=== PATIENT | male | born 2000 | race African-American/Black ===

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

== ENCOUNTER 2019-04-30 17:14 | Emergency (ER) | payer OTHER ==
--- OUTSIDE RECORDS SUMMARY | 2019-04-30 17:27 | XMS REPORT | Continuity of Care Document ---
:2000 External Reference #:[id number] Author Name Stacy Layne MD, PHD Address [address] 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 Onset: 05/27/2015 Atopic dermatitis Mary Anderson M.D. Onset: 02/02/2016 Gastroesophageal reflux disease Mary Anderson M.D. Onset: 05/12/2016 Hemorrhage of rectum and anus Skinny Ramos MD Onset: 08/31/2016 Vitamin D deficiency Skinny Ramos MD Onset: 09/14/2016 Closed traumatic dislocation Ivanna Green PA Onset: 03/28/2017 acromioclavicular joint Sprain of shoulder Ivanna Green PA Onset: 01/09/2018 Disorder of shoulder Ivanna Green PA Onset: 02/23/2018 Disorder of bursa of shoulder region Ivanna Green PA Onset: 02/23/2018 Closed fracture of middle phalanx of index Ivanna Green PA Onset: 2017 finger Mild intermittent asthma Stacy Layne MD, PHD Onset: 12/03/2018 Backache Stacy Layne MD, PHD Onset: 12/17/2018 Dysuria Stacy Layne MD, PHD Onset: 12/17/2018 Increased frequency of urination Stacy Layne MD, PHD Onset: 12/17/2018 Low back pain Stacy Layne MD, PHD Onset: 01/07/2019 Thoracic and lumbosacral neuritis Stacy Layne MD, PHD Onset: 01/07/2019 Resolved Problems Generalized abdominal pain Skinny Ramos MD Onset: 08/31/2016 Resolved: 05/31/2017 Diarrhea Skinny Ramos MD Onset: 08/31/2016 Resolved: 05/31/2017 Acute gastritis Skinny Ramos MD Onset: 09/14/2016 Resolved: 05/31/2017 Exacerbation of asthma Erin Velazquez MD Onset: 07/03/2017 Resolved: 10/31/2017 Sprain of shoulder Ivanna Green PA Onset: 04/25/2017 Resolved: 10/31/2017 Sprain of shoulder rotator cuff Sacha Stanley M.D. Onset: 05/12/2017 Resolved: 10/31/2017 Family History Date Family Member(s) Observation Comments General Cancer General Heart Attack General Heart Disease General Hypertension General Stroke Father Kidney Stone Father Hypertension Father Knee Problems Father Shoulder Surgery Father Stroke Father Alive Mother Kidney Cancer Mother Cancer Mother Renal Failure Syndrome on dialysis Mother Gallstones Mother Alive Grandfather Alive Grandmother Alive Paternal Grandfather due to Cancer () - age 58 Paternal Grandmother Alive Maternal Grandfather Colon Cancer Maternal Grandmother Kidney Cancer Social History Type Date Description Comments Sex Unknown Lives With Female Partner And her Dad Lives With Child Home Environment Lives With Girlfriends mother 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 Employed [employer] Tobacco Use Start: Unknown Never Smoked Cigarettes Smoking Status Reviewed: 04/17/19 Never Smoked Cigarettes ETOH Use Denies alcohol use Tobacco Use Start: Unknown Patient has never smoked Recreational Drug Use Denies Drug Use Exercise Type/Frequency Exercises regularly Allergies, Adverse Reactions, Alerts Description No Known Drug Allergies Medications Active Medications SIG Qnty Indications Ordering Date Provider Amoxicillin 1 tab by mouth 14tabs J02.9 Xi, 04/17/2019 500mg Tablets twice a day MD Stacy, PHD Pimecrolimus apply to 30gm L20.82 Xi, 04/17/2019 1% Cream affected area MD Stacy, every day as PHD needed Triamcinolone Acetonide apply to 80gm L20.82 [place], 04/17/2019 affected area MD Stacy, 0.1% Cream twice a day as PHD needed Zantac 75 1 tab by mouth 14tabs J02.9 [place], 04/17/2019 75mg Tablets twice a day as MD Stacy, needed PHD Cyclobenzaprine HCL 1-2 tab by mouth 30tabs M54.9 [place], 12/17/2018 5mg at bedtime as MD Stacy, Tablets needed for PHD muscle spasm Vitamin D3 1 cap by mouth 90caps E55.9 [place], 12/03/2018 5000Unit every day after MD Stacy, Capsules meals PHD Cetirizine HCL Once Daily 30tabs Unknown 10mg Tablets Epinephrine Once Unknown 0.3mg/0.3ML Solution Auto-Inject Fluticasone Propionate Once Daily 16units Unknown Nasal [place] Allergy Relief 24- Hour 50mcg/Act Suspension Ibuprofen 3 Times A Day as 90tabs Unknown 600mg Tablets Needed as needed for Pain History Medications Bactrim DS 1 tab by mouth twice 20tabs R30.0 [place], 12/10/2018 - a day MD Stacy, 12/17/2018 800-160mg Tablets PHD Ventolin HFA 2 puffs inh every 4 1units J45.20 [place], 12/03/2018 - hours wheezing or MD Stacy, 02/20/2019 108(90Base) mcg/Act difficulty breathing PHD Aerosol No Active Unknown 06/14/2018 - Medications 12/03/2018 Azithromycin 4 tabs by mouth all 4tabs Mary Anderson, 05/08/2018 - 250mg at once. M.D. 05/09/2018 Tablets Hydrocodone-Acetami take 1 tablet by 30tabs Jesus, 02/20/2018 - nophen mouth every 4 hours MD Karis 02/23/2018 5-325mg as needed for pain. Tablets Tramadol HCL 1 by mouth every 6 20tabs Jesus, 12/18/2017 - 50mg hour as needed pain MD Karis 02/23/2018 Tablets Ibuprofen 1 by mouth three 90tabs Lizeth, 12/12/2017 - 600mg times a day as Jose Luis Goncalves 06/14/2018 Tablets needed Acetaminophen 1-2 by mouth every 90tabs Lizeth, 12/12/2017 - 500mg 4-6 hour Jose Luis Goncalves 06/14/2018 Tablets Benzonatate 1 tab by mouth three 30caps J06.9 Mary Anderson, 12/01/2017 - 200mg times a day M.D. 12/11/2017 Capsules No Active Unknown 09/13/2017 - Medications 12/01/2017 Amoxicillin/Clavula 1 by mouth twice a 20tabs J45.901 Marcus, 07/11/2017 - sean Potassium day MD Erin Unknown 875-125mg Tablets Prednisone 1 by mouth every day 3tabs J45.901 Marcus, 07/03/2017 - 50mg until gone MD Erin Unknown Tablets Azithromycin 1 by mouth every day 5tabs J45.901 Marcus 07/03/2017 - 500mg MD Erin 07/11/2017 Tablets Oxycodone HCL 1-2 every 4-6 hour 40tabs S43.421S Lizeth, 06/23/2017 - 5mg as needed pain Jose Luis Goncalves Unknown Tablets Oxycodone HCL 1-2 every 4-6 hour 40tabs S43.421S Lizeth, 06/07/2017 - 5mg as needed pain Jose Luis Goncalves 06/23/2017 Tablets Sulfacetamide 1-2 drops left eye 15ml H10.89 Ra, 05/31/2017 - Sodium 3-5 times a day for Radha Unknown 10% Solution 5 days , COREMAKER PIPE Ear Wax Drops 3-4 drops each ear 15ml H61.21 Miranda, 12/01/2016 - 6.5% as needed Janny Leigh Solution PNP-BC, COREMAKER PIPE, Ibclc Naproxen 1 by mouth twice a 60tabs S93.401A Miranda, 11/23/2016 - 500mg day with food as Lu 03/23/2017 Tablets needed PNP-BC, COREMAKER PIPE, Ibclc Amoxicillin/Clavula take 1 tablet by 14tabs J01.10 Mary Anderson, 2016 - sean Potassium mouth every 12 hours M.D. 11/10/2016 for 7 days for sinus 875-125mg Tablets infection Omeprazole 1 tab by mouth every 30caps K29.00 Skinny Ramos MD 09/14/2016 - 20mg day every morning 03/15/[address] Valencia drink half the 4000ml R10.84 Skinny Ramos MD 08/31/2016 - 236gm evening before and Unknown Solution Rec half the morning of the procedure (1 cup every 10') Dulcolax 4 tablets taken a 4tabs R10.Aisha Ramos MD 08/31/2016 - 5mg 8pm the day before Unknown Tablets DR the procedure Citroma 1 bottle by mouth 1bottle R10.84 Skinny Ramos MD 08/31/2016 - once Unknown 1.745GM/30ML Solution Mouth Tonic Mix 1000mL NS, 45mL 1000ml R07.0 Mary Anderson, 05/24/2016 - Magic vicous lidocaine, M.D. 06/01/2016 Mouthwash Liquid 30mL diphenhydramine soln/syrup, 8.5g sodium bicarb powder, swish and swallow 1-2mLQID Simethicone take 1 tab PO after 30caps R14.3 Mary Anderson, 03/23/2016 - 125mg meals and before M.D. 04/22/2016 Capsules bedtime as needed for flatus Guaifenesin 200 mg by mouth 30tabs J06.9 Mary Anderson, 02/02/2016 - 200mg every 6 hours as M.D. 04/22/2016 Tablets needed Triamcinolone apply to irritated 30gm L20.9 Mary Anderson, 02/02/2016 - Acetonide areas three times a M.D. 06/01/2016 0.1% day as needed. Do Cream not use on face or pelvic areas School Note Patient was seen in R10.13 Mary Anderson, 01/12/2016 - doctor's office M.D. 01/13/2016 today. Was absent from school. Miralax 17g by mouth every 510units R10.13 Mary Anderson, 01/06/2016 - 3350NF daily as needed M.D. 01/12/2016 Powder constipation K59.00 School Note Patient has been Mary Anderson, 01/06/2016 - absent from school M.D. 01/07/2016 from 01/03-01/05 due to illness. Omeprazole 1 by mouth every day 90caps R12 Ra, 12/03/2015 - 20mg Radha, 05/10/[address] REINOSO Dextromethorphan-G 10ml by mouth q4-6 400ml J06.9 Mary Anderson, 10/08/2015 - uaifenesin hours as needed cough M.D. 11/16/2015 10-100mg/5ML Solution Epipen 2-Rd in anaphylaxis inject 2units Z00.129 Mary Anderson, 07/10/2015 - intramuscular x 1 prn M.D. Unknown 0.3mg/0.3ML Solution Auto-Inject Work Note Pt was seen today in Mary Anderson, 07/10/2015 - the office with M.DYordan 07/10/2015 father Proair HFA 1-2 puffs every 4 17gm J45.20 Mary Anderson, 05/27/2015 - hours as needed M.D. Unknown 108(90Base) mcg/Act Aerosol J45.990 Flovent Diskus use twice a day 493.10 Zofia, 05/27/2015 - Jose Luis Chaparro 07/10/2015 50mcg/Blist Aerosol Meloxicam 1 by mouth 30tabs 733.6 Zofia, 05/27/2015 - 7.5mg Tablets every day Jose Lusi Chaparro 07/10/2015 No Active Medications Zofia, 05/27/2015 - Jose Luis Chaparro 05/27/2015 Ventolin HFA Inhale 2 Puffs Unknown - 108(90Base) Every 4 Hours 06/14/2018 mcg/Act Aerosol If Needed Fluticasone Propionate Unknown - 06/14/2018 50mcg/Act Suspension Cetirizine HCL Unknown - 10mg 06/14/2018 Tablets Benzonatate Take One Unknown - 200mg Capsule By 01/09/2018 Capsules Mouth 3 Times A Day Naproxen take one tablet Unknown - 500mg Tablets by mouth twice Unknown a day Flonase Sensimist 2 sprays every Unknown - day Unknown Suspension Zyrtec Allergy 1 tab by mouth Unknown - 10mg every night Unknown Tablets Tylenol 1 tab by mouth Unknown - 325mg Capsules three times per Unknown day prn Cyclobenzaprine HCL take 1 tablet 60tabs [place], - 5mg by mouth three Jenniferleigh, Unknown Tablets times a day - COREMAKER PIPE beware sedating effects [place] Complete 1 by mouth Unknown - 60mg every day Unknown Chewtabs Ondansetron HCL 1 tab by mouth 14tabs Unknown - 8mg every 8 hours 03/15/2017 Tablets as needed Dexamethasone 1 tablet a day Unknown - 4mg Tablets PO for 5 days . 06/01/2016 Omeprazole 1 by mouth 30caps Mary Anderson M.D. - 40mg Capsules every day 03/15/2017 Ondansetron HCL Calvin Epperson - 4mg ALFRED Chambers 06/01/2016 Tablets Ondansetron 1 PO bid Marquis Purvis - 4mg Adelita Machado MD 03/23/2016 Dispers Hydrocodone-Acetaminop She Nieto - hen LUCILAC 12/09/2015 5-325mg Tablets Medications Administered in Office Medication SIG Qnty Indications Ordering Provider Date Injection Ketorolac Tromethamine Stacy Layne MD, 01/07/2019 30 MG/mL (Toradol) PHD Injection Methylprednisolone acetate Ivanna Green PA 01/19/2018 (Depomedrol) 80mg injection Injection Immunizations CPT Code Status Date Vaccine Lot # 36862 Given 12/03/2018 Influenza Virus Vaccine, Quadrivalent, 36 Mos+, [id number] 94216 Given 03/20/2018 Meningococcal Conjugate Vaccine Serogroups For Intramuscular Use 91304 Given 06/28/2017 Influenza Virus Vacc[id number] [id number] Given 12/01/2016 Hepatitis A Vaccine Pediatric/Adolescent Dosage 2 [id number] Dose Schedule 09418 Given 07/12/2016 Influenza Virus Vaccine, Quadrivalent, 36 Mos+, [id number] 60067 Given 03/23/2016 Gardasil [id number] 54937 Given 10/08/2015 Meningococcal Conjugate Vaccine Serogroups For [id number] Intramuscular Use 12149 Given 10/08/2015 Gardasil [id number] 67715 Given 10/08/2015 Hepatitis A Vaccine Pediatric/Adolescent Dosage 2 [id number] Dose Schedule 75178 Given 07/17/2015 Gardasil [id number] 10057 Given 07/17/2015 Varicella (Chicken Pox) Vaccine [id number] Q2038 Given 07/17/2015 Influenza Vaccine (Fluzone) Age 3 And Older [id number] 64086 Given 05/22/2013 Pneumococcal Conjugate Vaccine 13 Valent For Intramuscular Use 74302 Given 02/16/2011 Meningococcal Conjugate Vaccine Serogroups For Intramuscular Use 26180 Given 02/16/2011 Tdap injection 86573 Given 07/19/2004 Poliovirus Vaccine Subcutaneous Or Intramuscular 95482 Given 07/19/2004 DTaP Vaccine Younger Than 7 67772 Given 06/16/2004 MMR Vaccine, Live, For Subcutaneous Use 61119 Given 09/15/2003 Pneumococcal Conjugate Vaccine 13 Valent For Intramuscular Use 23306 Given 11/21/2000 Hib PRP-T Conjugate 4 Dose Schedule 77918 Given 11/21/2000 Pneumococcal Conjugate Vaccine 13 Valent For Intramuscular Use 77823 Given 11/21/2000 DTaP Vaccine Younger Than 7 99347 Given 09/04/2000 Varicella (Chicken Pox) Vaccine 62811 Given 09/04/2000 Poliovirus Vaccine Subcutaneous Or Intramuscular 79124 Given 09/04/2000 MMR Vaccine, Live, For Subcutaneous Use 71145 Given 09/04/2000 Pneumococcal Conjugate Vaccine 13 Valent For Intramuscular Use 92698 Given 06/13/2000 Hepatitis B Vaccine Pediatric/Adolescent 80527 Given 02/23/2000 DTaP Vaccine Younger Than 7 14668 Given 02/23/2000 Hib PRP-T Conjugate 4 Dose Schedule 27460 Given 1999 Hib PRP-T Conjugate 4 Dose Schedule 19851 Given 1999 DTaP Vaccine Younger Than 7 47476 Given 1999 Poliovirus Vaccine Subcutaneous Or Intramuscular 22074 Given 1999 Hepatitis B Vaccine Pediatric/Adolescent 60141 Given 1999 Hepatitis B Vaccine Pediatric/Adolescent 66049 Given 1999 Poliovirus Vaccine Subcutaneous Or Intramuscular 33232 Given 1999 DTaP Vaccine Younger Than 7 69587 Given 1999 Hib PRP-T Conjugate 4 Dose Schedule [id number] Given Unknown Meningococcal B,Unspecified Vital Signs Date Vital Result Comment 04/17/2019 3:31pm BP Systolic 145 mmHg BP Diastolic 79 mmHg Body Temperature 97.9 F Heart Rate 84 /min Respiratory Rate 20 /min Height 69 inches 5'9" Weight 179.38 lb BMI (Body Mass Index) 26.5 kg/m2 BSA (Body Surface Area) 1.97 m2 [place] body weight in kilograms 73 kg Height Percentile 42 % Weight Percentile 81st O2 % BldC Oximetry 98 % Ra Pain Level 0 02/22/2019 2:53pm BP Systolic 146 mmHg BP Diastolic 77 mmHg Body Temperature 98.0 F Heart Rate 88 /min Respiratory Rate 18 /min Height 69 inches 5'9" Weight 174.00 lb BMI (Body Mass Index) 25.7 kg/m2 BSA (Body Surface Area) 1.95 m2 [place] body weight in kilograms 73 kg Height Percentile 42 % Weight Percentile 76th O2 % BldC Oximetry 99 % 02/20/2019 3:05pm BP Systolic 136 mmHg BP Diastolic 82 mmHg Body Temperature 98.4 F Heart Rate 79 /min Height 69 inches 5'9" Weight 172.00 lb BMI (Body Mass Index) 25.4 kg/m2 BSA (Body Surface Area) 1.94 m2 [place] body weight in kilograms 73 kg Height Percentile 42 % Weight Percentile 74th O2 % BldC Oximetry 97 % 01/07/2019 2:56pm BP Systolic 145 mmHg BP Diastolic 79 mmHg Body Temperature 98.0 F Heart Rate 74 /min Respiratory Rate 14 /min Height 69 inches 5'9" Weight 170.00 lb BMI (Body Mass Index) 25.1 kg/m2 BSA (Body Surface Area) 1.93 m2 [place] body weight in kilograms 73 kg Height Percentile 42 % Weight Percentile 73rd O2 % BldC Oximetry 98 % 01/01/2019 1:50pm BP Systolic 123 mmHg BP Diastolic 79 mmHg Body Temperature 98.9 F Heart Rate 81 /min Respiratory Rate 16 /min Height 69 inches 5'9" Weight 167.00 lb BMI (Body Mass Index) 24.7 kg/m2 BSA (Body Surface Area) 1.91 m2 [place] body weight in kilograms 73 kg Height Percentile 42 % Weight Percentile 69th O2 % BldC Oximetry 98 % Pain Level 8 Lower Back Pain Travels To [place] [employer] [place] 12/21/2018 2:12pm BP Systolic 128 mmHg BP Diastolic 88 mmHg Body Temperature 98.6 F Heart Rate 84 /min Respiratory Rate 16 /min Height 69 inches 5'9" Weight 169.00 lb BMI (Body Mass Index) 25.0 kg/m2 BSA (Body Surface Area) 1.92 m2 [place] body weight in kilograms 73 kg Height Percentile 42 % Weight Percentile 72nd O2 % BldC Oximetry 98 % 12/17/2018 4:37pm BP Systolic 129 mmHg BP Diastolic 83 mmHg Body Temperature 98.2 F Heart Rate 68 /min Respiratory Rate 16 /min Height 69 inches 5'9" Weight 172.00 lb BMI (Body Mass Index) 25.4 kg/m2 BSA (Body Surface Area) 1.94 m2 [place] body weight in kilograms 73 kg Height Percentile 42 % Weight Percentile 75th O2 % BldC Oximetry 98 % 12/10/2018 3:52pm BP Systolic 143 mmHg BP Diastolic 81 mmHg Body Temperature 98.2 F Heart Rate 76 /min Respiratory Rate 18 /min Height 69 inches 5'9" Weight 170.00 lb BMI (Body Mass Index) 25.1 kg/m2 BSA (Body Surface Area) 1.93 m2 [place] body weight in kilograms 73 kg Height Percentile 42 % Weight Percentile 73rd O2 % BldC Oximetry 98 % 12/03/2018 1:47pm BP Systolic 135 mmHg BP Diastolic 79 mmHg Body Temperature 97.5 F Heart Rate 75 /min Respiratory Rate 16 /min Height 69 inches 5'9" Weight 172.00 lb BMI (Body Mass Index) 25.4 kg/m2 BSA (Body Surface Area) 1.94 m2 [place] body weight in kilograms 73 kg Height Percentile 42 % Weight Percentile 75th O2 % BldC Oximetry 98 % 07/16/2018 12:00am BP Systolic 147 mmHg BP Diastolic 86 mmHg Body Temperature 98.9 F Heart Rate 65 /min Respiratory Rate 14 /min Height 69 inches Weight 170.00 lb BMI (Body Mass Index) 25.1 kg/m2 Height Percentile 43 % Weight Percentile 75th O2 % BldC Oximetry 100 % 06/14/2018 8:29am BP Systolic 112 mmHg BP Diastolic 74 mmHg Body Temperature 98.0 F Heart Rate 70 /min Height 67 inches 5'7" [place] body weight in kilograms 67 kg Height Percentile 19 % O2 % BldC Oximetry 98 % Pain Level 0 05/29/2018 2:19pm BP Systolic 128 mmHg BP Diastolic 86 mmHg Body Temperature 97.7 F Heart Rate 82 /min Respiratory Rate 15 /min Height 67 inches 5'7" Weight 168.00 lb BMI (Body Mass Index) 26.3 kg/m2 BSA (Body Surface Area) 1.88 m2 [place] body weight in kilograms 67 kg Height Percentile 19 % Weight Percentile 73rd O2 % BldC Oximetry 99 % Room air Pain Level 5 05/07/2018 11:14am BP Systolic Sitting Left Arm 140 mmHg BP Diastolic Sitting Left Arm 78 mmHg Body Temperature 98.6 F Heart Rate 77 /min Weight 170.00 lb Weight Percentile 75th O2 % BldC Oximetry 97 % 03/22/2018 9:12am BP Systolic Sitting Left Arm 128 mmHg BP Diastolic Sitting Left Arm 72 mmHg Body Temperature 98.2 F Heart Rate 82 /min Weight 174.38 lb Weight Percentile 80th O2 % BldC Oximetry 96 % 03/22/2018 8:44am BP Systolic 125 mmHg BP Diastolic 77 mmHg Body Temperature 98.7 F Heart Rate 87 /min Respiratory Rate 15 /min Height 68.25 inches 5'8.25" Weight 174.00 lb BMI (Body Mass Index) 26.3 kg/m2 BSA (Body Surface Area) 1.93 m2 [place] body weight in kilograms 71 kg Height Percentile 33 % Weight Percentile 80th O2 % BldC Oximetry 93 % room air Pain Level 0 03/20/2018 9:41am BP Systolic 126 mmHg BP Diastolic 82 mmHg Body Temperature 97.2 F Heart Rate 58 /min Respiratory Rate 18 /min Height 77 inches 6'5" Weight 176.00 lb BMI (Body Mass Index) 20.9 kg/m2 BSA (Body Surface Area) 2.12 m2 [place] body weight in kilograms 94 kg Height Percentile 97 % Weight Percentile 81st O2 % BldC Oximetry 96 % 02/05/2018 9:19am BP Systolic 122 mmHg BP Diastolic 80 mmHg Body Temperature 98.0 F Heart Rate 71 /min Height 77 inches 6'5" Weight 173.00 lb BMI (Body Mass Index) 20.5 kg/m2 BSA (Body Surface Area) 2.10 m2 [place] body weight in kilograms 94 kg Height Percentile 97 % Weight Percentile 79th 01/25/2018 8:53am BP Systolic Sitting Left Arm 124 mmHg BP Diastolic Sitting Left Arm 80 mmHg Body Temperature 98.3 F Heart Rate 72 /min Respiratory Rate 16 /min Height 77 inches 6'5" Weight 170.50 lb BMI (Body Mass Index) 20.2 kg/m2 BSA (Body Surface Area) 2.09 m2 [place] body weight in kilograms 94 kg Height Percentile 97 % Weight Percentile 77th O2 % BldC Oximetry 100 % Ra Pain Level 7 01/09/2018 8:09am BP Systolic 138 mmHg BP Diastolic 93 mmHg Body Temperature 98.3 F Heart Rate 66 /min Respiratory Rate 16 /min Height 77 inches 6'5" Weight 175.00 lb BMI (Body Mass Index) 20.7 kg/m2 BSA (Body Surface Area) 2.11 m2 [place] body weight in kilograms 94 kg Height Percentile 97 % Weight Percentile 81st Pain Level 8 12/18/2017 2:12pm BP Systolic Sitting Left Arm 151 mmHg BP Diastolic Sitting Left Arm 78 mmHg Body Temperature 98.2 F Heart Rate 65 /min Respiratory Rate 19 /min Height 77 inches 6'5" Weight 170.00 lb BMI (Body Mass Index) 20.2 kg/m2 BSA (Body Surface Area) 2.09 m2 [place] body weight in kilograms 94 kg Height Percentile 97 % Weight Percentile 77th 12/12/2017 3:35pm BP Systolic Sitting Left Arm 134 mmHg BP Diastolic Sitting Left Arm 80 mmHg Body Temperature 98.9 F Heart Rate 101 /min Respiratory Rate 20 /min Height 77 inches 6'5" Weight 169.00 lb BMI (Body Mass Index) 20.0 kg/m2 BSA (Body Surface Area) 2.08 m2 [place] body weight in kilograms 94 kg Height Percentile 97 % Weight Percentile 76th 12/04/2017 2:18pm BP Systolic 116 mmHg BP Diastolic 72 mmHg Body Temperature 96.4 F Heart Rate 80 /min Weight 175.00 lb Weight Percentile 82nd O2 % BldC Oximetry 96 % 12/01/2017 10:24am BP Systolic 128 mmHg BP Diastolic 82 mmHg Body Temperature 98.4 F Heart Rate 83 /min Respiratory Rate 18 /min Height 67 inches 5'7" Weight 170.12 lb BMI (Body Mass Index) 26.6 kg/m2 BSA (Body Surface Area) 1.89 m2 [place] body weight in kilograms 67 kg Height Percentile 20 % Weight Percentile 77th O2 % BldC Oximetry 98 % 11/01/2017 11:51am BP Systolic Sitting Left Arm 108 mmHg BP Diastolic Sitting Left Arm 68 mmHg Body Temperature 98.7 F Heart Rate 80 /min Respiratory Rate 20 /min Height 67 inches 5'7" Weight 171.38 lb BMI (Body Mass Index) 26.8 kg/m2 BSA (Body Surface Area) 1.89 m2 [place] body weight in kilograms 67 kg Height Percentile 20 % Weight Percentile 79th 08/14/2017 9:20am BP Systolic 148 mmHg BP Diastolic 92 mmHg Body Temperature 97.6 F Heart Rate 75 /min Height 67 inches 5'7" Weight 168.00 lb BMI (Body Mass Index) 26.3 kg/m2 BSA (Body Surface Area) 1.88 m2 [place] body weight in kilograms Child kg Height Percentile 20 % Weight Percentile 77th O2 % BldC Oximetry 96 % 07/03/2017 9:36am BP Systolic 127 mmHg BP Diastolic 82 mmHg Body Temperature 99.2 F Heart Rate 86 /min Height 67 inches 5'7" Weight 167.00 lb BMI (Body Mass Index) 26.2 kg/m2 BSA (Body Surface Area) 1.87 m2 [place] body weight in kilograms Child kg Height Percentile 21 % Weight Percentile 77th 06/28/2017 11:27am BP Systolic Sitting Left Arm 140 mmHg BP Diastolic Sitting Left Arm 84 mmHg Height 67 inches 5'7" Weight 168.25 lb BMI (Body Mass Index) 26.3 kg/m2 BSA (Body Surface Area) 1.88 m2 [place] body weight in kilograms Child kg Height Percentile 21 % Weight Percentile 78th 06/07/2017 11:08am BP Systolic 129 mmHg BP Diastolic 76 mmHg Body Temperature 97.9 F Heart Rate 78 /min Respiratory Rate 16 /min Height 67 inches 5'7" Weight 168.50 lb BMI (Body Mass Index) 26.4 kg/m2 BSA (Body Surface Area) 1.88 m2 [place] body weight in kilograms Child kg Height Percentile 21 % Weight Percentile 78th Pain Level 0 05/31/2017 10:31am BP Systolic 118 mmHg BP Diastolic 74 mmHg Height 66 inches 5'6" Weight 165.12 lb BMI (Body Mass Index) 26.6 kg/m2 BSA (Body Surface Area) 1.84 m2 [place] body weight in kilograms Child kg Height Percentile 13 % Weight Percentile 75th 04/27/2017 1:40pm BP Systolic Sitting Left Arm 130 mmHg BP Diastolic Sitting Left Arm 72 mmHg Height 66 inches 5'6" Weight 167.00 lb BMI (Body Mass Index) 27.0 kg/m2 BSA (Body Surface Area) 1.85 m2 [place] body weight in kilograms Child kg Height Percentile 13 % Weight Percentile 78th 04/21/2017 9:47am BP Systolic 120 mmHg BP Diastolic 83 mmHg Body Temperature 98.8 F Heart Rate 88 /min Height 67 inches 5'7" Weight 164.00 lb BMI (Body Mass Index) 25.7 kg/m2 BSA (Body Surface Area) 1.86 m2 [place] body weight in kilograms Child kg Height Percentile 22 % Weight Percentile 75th 03/28/2017 1:37pm BP Systolic 125 mmHg BP Diastolic 8 mmHg Heart Rate 72 /min Height 67 inches 5'7" Weight 164.00 lb BMI (Body Mass Index) 25.7 kg/m2 BSA (Body Surface Area) 1.86 m2 [place] body weight in kilograms Child kg Height Percentile 22 % Weight Percentile 75th 03/23/2017 10:05am BP Systolic 130 mmHg BP Diastolic 78 mmHg Body Temperature 96.3 F Heart Rate 84 /min Height 68 inches 5'8" Weight 164.25 lb BMI (Body Mass Index) 25.0 kg/m2 BSA (Body Surface Area) 1.88 m2 [place] body weight in kilograms Child kg Height Percentile 33 % Weight Percentile 75th 03/15/2017 3:38pm BP Systolic Sitting Left Arm 130 mmHg BP Diastolic Sitting Left Arm 84 mmHg Heart Rate 80 /min Respiratory Rate 16 /min Height 68 inches 5'8" Weight 164.00 lb BMI (Body Mass Index) 24.9 kg/m2 BSA (Body Surface Area) 1.88 m2 [place] body weight in kilograms Child kg Height Percentile 33 % Weight Percentile 75th 03/15/2017 11:10am BP Systolic Sitting Left Arm 138 mmHg BP Diastolic Sitting Left Arm 88 mmHg Heart Rate 84 /min Respiratory Rate 20 /min Height 67.5 inches 5'7.50" Weight 165.00 lb BMI (Body Mass Index) 25.5 kg/m2 BSA (Body Surface Area) 1.87 m2 [place] body weight in kilograms Child kg Height Percentile 27 % Weight Percentile 76th 12/08/2016 1:26pm BP Systolic Sitting Left Arm 114 mmHg BP Diastolic Sitting Left Arm 70 mmHg Body Temperature 98.2 F Heart Rate 72 /min Respiratory Rate 24 /min Height 67.5 inches 5'7.50" Weight 167.00 lb BMI (Body Mass Index) 25.8 kg/m2 BSA (Body Surface Area) 1.88 m2 Height Percentile 29 % Weight Percentile 80th 12/01/2016 2:37pm BP Systolic Sitting Right Arm 114 mmHg BP Diastolic Sitting Right Arm 66 mmHg Body Temperature 99.4 F Heart Rate 66 /min Respiratory Rate 16 /min Height 67.5 inches 5'7.50" Weight 163.00 lb BMI (Body Mass Index) 25.1 kg/m2 BSA (Body Surface Area) 1.86 m2 [place] body weight in kilograms Child kg Height Percentile 29 % Weight Percentile 76th 11/23/2016 3:50pm BP Systolic 128 mmHg BP Diastolic 80 mmHg Body Temperature 98.1 F Heart Rate 72 /min Respiratory Rate 18 /min Height 67.75 inches 5'7.75" Weight 164.00 lb BMI (Body Mass Index) 25.1 kg/m2 BSA (Body Surface Area) 1.87 m2 Height Percentile 32 % Weight Percentile 77th O2 % BldC Oximetry 98 % 11/03/2016 4:12pm BP Systolic 132 mmHg BP Diastolic 82 mmHg Body Temperature 99.1 F Heart Rate 78 /min Respiratory Rate 18 /min Height 67.75 inches 5'7.75" Weight 163.00 lb BMI (Body Mass Index) 25.0 kg/m2 BSA (Body Surface Area) 1.87 m2 [place] body weight in kilograms Child kg Height Percentile 32 % Weight Percentile 77th O2 % BldC Oximetry 98 % 09/15/2016 11:36am BP Systolic Sitting Left Arm 128 mmHg BP Diastolic Sitting Left Arm 80 mmHg Height 70 inches 5'10" Weight 168.38 lb BMI (Body Mass Index) 24.2 kg/m2 BSA (Body Surface Area) 1.94 m2 [place] body weight in kilograms Child kg Height Percentile 63 % Weight Percentile 82nd 09/14/2016 2:41pm BP Systolic Sitting Left Arm 120 mmHg BP Diastolic Sitting Left Arm 80 mmHg Heart Rate 80 /min Respiratory Rate 16 /min Height 70 inches 5'10" Weight 167.00 lb BMI (Body Mass Index) 24.0 kg/m2 BSA (Body Surface Area) 1.93 m2 Height Percentile 63 % Weight Percentile 81st 09/06/2016 4:02pm BP Systolic Sitting Right Arm 112 mmHg BP Diastolic Sitting Right Arm 62 mmHg Height 70 inches 5'10" Weight 168.38 lb BMI (Body Mass Index) 24.2 kg/m2 BSA (Body Surface Area) 1.94 m2 [place] body weight in kilograms Child kg Height Percentile 64 % Weight Percentile 82nd 08/31/2016 11:23am BP Systolic Sitting Left Arm 120 mmHg BP Diastolic Sitting Left Arm 88 mmHg Heart Rate 83 /min Respiratory Rate 16 /min Height 69 inches 5'9" Weight 167.00 lb BMI (Body Mass Index) 24.7 kg/m2 BSA (Body Surface Area) 1.91 m2 Height Percentile 50 % Weight Percentile 81st 08/24/2016 10:16am BP Systolic Sitting Left Arm 118 mmHg BP Diastolic Sitting Left Arm 82 mmHg Body Temperature 98.5 F Heart Rate 68 /min Height 69 inches 5'9" Weight 165.00 lb BMI (Body Mass Index) 24.4 kg/m2 BSA (Body Surface Area) 1.90 m2 [place] body weight in kilograms Child kg Height Percentile 50 % Weight Percentile 80th 07/12/2016 2:39pm BP Systolic Sitting Right Arm 122 mmHg BP Diastolic Sitting Right Arm 68 mmHg Body Temperature 98.0 F Heart Rate 60 /min Respiratory Rate 18 /min Height 69 inches 5'9" Weight 162.38 lb BMI (Body Mass Index) 24.0 kg/m2 BSA (Body Surface Area) 1.89 m2 Height Percentile 51 % Weight Percentile 78th 06/01/2016 3:31pm BP Systolic Sitting Left Arm 126 mmHg BP Diastolic Sitting Left Arm 78 mmHg Body Temperature 97.6 F Height 69 inches 5'9" Weight 168.12 lb BMI (Body Mass Index) 24.8 kg/m2 BSA (Body Surface Area) 1.92 m2 [place] body weight in kilograms Child kg Height Percentile 52 % Weight Percentile 84th 05/24/2016 1:03pm BP Systolic Sitting Right Arm 144 mmHg BP Diastolic Sitting Right Arm 82 mmHg Body Temperature 98.2 F Heart Rate 76 /min Respiratory Rate 14 /min Height 69 inches 5'9" Weight 167.00 lb BMI (Body Mass Index) 24.7 kg/m2 BSA (Body Surface Area) 1.91 m2 [place] body weight in kilograms Child kg Height Percentile 52 % Weight Percentile 83rd 05/12/2016 11:05am BP Systolic Sitting Left Arm 138 mmHg BP Diastolic Sitting Left Arm 86 mmHg Heart Rate 82 /min Weight 165.38 lb Weight Percentile 82nd O2 % BldC Oximetry 99 % 05/10/2016 4:31pm BP Systolic Sitting Left Arm 118 mmHg BP Diastolic Sitting Left Arm 78 mmHg Height 68.3 inches 5'8.30" Weight 168.00 lb BMI (Body Mass Index) 25.3 kg/m2 BSA (Body Surface Area) 1.90 m2 [place] body weight in kilograms Child kg Height Percentile 43 % Weight Percentile 84th 04/22/2016 10:06am BP Systolic Sitting Right Arm 116 mmHg BP Diastolic Sitting Right Arm 60 mmHg Height 68.25 inches 5'8.25" Weight 163.00 lb BMI (Body Mass Index) 24.6 kg/m2 BSA (Body Surface Area) 1.88 m2 Height Percentile 42 % Weight Percentile 80th 03/23/2016 9:36am BP Systolic 124 mmHg BP Diastolic 74 mmHg Body Temperature 97.7 F Heart Rate 74 /min Respiratory Rate 16 /min Height 68.25 inches 5'8.25" Weight 165.00 lb BMI (Body Mass Index) 24.9 kg/m2 BSA (Body Surface Area) 1.89 m2 [place] body weight in kilograms Child kg Height Percentile 43 % Weight Percentile 83rd O2 % BldC Oximetry 99 % 02/02/2016 11:38am BP Systolic Sitting Left Arm 119 mmHg BP Diastolic Sitting Left Arm 65 mmHg Body Temperature 97.2 F Heart Rate 78 /min Respiratory Rate 14 /min Weight 162.00 lb Weight Percentile 81st 01/12/2016 2:17pm BP Systolic 128 mmHg BP Diastolic 70 mmHg Heart Rate 76 /min Respiratory Rate 18 /min Weight 159.50 lb Weight Percentile 79th 01/06/2016 8:49am BP Systolic Sitting Left Arm 124 mmHg BP Diastolic Sitting Left Arm 66 mmHg Heart Rate 72 /min Respiratory Rate 19 /min Height 67 inches 5'7" Weight 163.00 lb BMI (Body Mass Index) 25.5 kg/m2 BSA (Body Surface Area) 1.85 m2 Height Percentile 29 % Weight Percentile 83rd 12/09/2015 3:00pm BP Systolic Sitting Left Arm 138 mmHg BP Diastolic Sitting Left Arm 88 mmHg Heart Rate 80 /min Respiratory Rate 21 /min Height 67 inches 5'7" Weight 160.00 lb BMI (Body Mass Index) 25.1 kg/m2 BSA (Body Surface Area) 1.84 m2 Height Percentile 30 % Weight Percentile 81st 12/03/2015 10:25am BP Systolic 108 mmHg BP Diastolic 72 mmHg Body Temperature 98.0 F Height 67.5 inches 5'7.50" Weight 156.00 lb BMI (Body Mass Index) 24.1 kg/m2 BSA (Body Surface Area) 1.83 m2 Height Percentile 36 % Weight Percentile 77th 11/16/2015 10:26am BP Systolic 126 mmHg BP Diastolic 74 mmHg Body Temperature 98.1 F Height 67.5 inches 5'7.50" Weight 154.25 lb BMI (Body Mass Index) 23.8 kg/m2 BSA (Body Surface Area) 1.82 m2 Height Percentile 37 % Weight Percentile 76th 10/08/2015 1:13pm BP Systolic 118 mmHg BP Diastolic 72 mmHg Body Temperature 98.0 F Height 67.5 inches 5'7.50" Weight 150.00 lb BMI (Body Mass Index) 23.1 kg/m2 BSA (Body Surface Area) 1.80 m2 Height Percentile 38 % Weight Percentile 72nd 07/10/2015 10:08am BP Systolic 114 mmHg BP Diastolic 72 mmHg Heart Rate 88 /min Respiratory Rate 18 /min Height 67 inches 5'7" Weight 141.12 lb BMI (Body Mass Index) 22.1 kg/m2 BSA (Body Surface Area) 1.74 m2 Height Percentile 35 % Weight Percentile 63rd 05/27/2015 10:59am BP Systolic Sitting Left Arm 116 mmHg BP Diastolic Sitting Left Arm 72 mmHg Heart Rate 68 /min Respiratory Rate 19 /min Height 67.25 inches 5'7.25" Weight 145.00 lb BMI (Body Mass Index) 22.5 kg/m2 BSA (Body Surface Area) 1.77 m2 Height Percentile 40 % Weight Percentile 70th Results Test Date Facility Test Result H/L Range Note Laboratory test 04/17/2019 [facility] <pending> Pos, Neg, finding A Strep Invalid Ua RFX Micro & 03/05/2019 [facility] Urine Color YELLOW Yellow 1 Culture II [address] [place] [address] [phone] Urine Clarity CLEAR Clear Urine Glucose - Dipstick NEGATIVE mg/dL Negative Urine Bilirubin - Dipstick NEGATIVE Negative Urine Ketone NEGATIVE mg/dL Negative Urine Specific [place] 1.010 Normal 1.010-1.030 Urine Blood NEGATIVE Negative Urine PH 6.0 Low 6.5-7.5 Urine Protein - Dipstick NEGATIVE mg/dL Negative Urine Urobilinogen - Dipstick 0.2 E.U./dL Normal 0.2-1.0 Urine Nitrite - Dipstick NEGATIVE Negative Urine Leuk Esterase NEGATIVE Negative Source: URINE, CLEAN CAT <SEE NOTE> 2 Laboratory test 03/05/2019 [facility] Acetaminophen < 2.0 Low 10.0-30.0 [address] ug/[place] [address] [phone] Ethyl Alcohol 45.0 mg/dL 4 Drugs Of 03/05/2019 [facility] Amphetamines (Urine) Negative Abuse-Urine Screen [address] [place], [place] [id number] [phone] Barbiturates (Urine) Negative Benzodiazepines (Urine) Negative Cannabinoids (Urine) POSITIVE Abnormal Cocaine Metabolite (Urine) Negative Methadone (Urine) Negative Opiates (Urine) Negative Urine Cutoffs * 5 Comprehensive 03/05/2019 [facility] Glucose 101 mg/dL Normal 74-106 Metabolic Panel [address] [place] [address] [phone] BUN 7 mg/dL Normal 7-18 Creatinine 1.0 mg/dL Normal 0.6-1.3 Glom Filtration Rate, Estimate >60 mL/min >60 If >60 mL/min >60 6 BUN/Creat 7.0 ratio Sodium 143 mmol/L Normal 136-145 Potassium 3.4 mmol/L Low 3.5-5.1 Chloride 109 mmol/L High 98-107 Carbon Dioxide 25 mmol/L Normal 21-32 Anion Gap 9 mEq/L Normal 8-16 Calcium 9.1 mg/dL Normal 8.5-10.1 Total Protein 7.8 g/dL Normal 6.4-8.2 Albumin 4.2 g/dL Normal 3.4-5.0 Globulin 3.6 g/dL Normal 1.9-4.3 Alb/Glob 1.2 ratio Bilirubin,Total 0.2 mg/dL Normal 0.2-1.0 Sgot/Ast 10 U/L Low 15-37 7 SGPT/Alt 21 U/L Normal 12-78 Alkaline Phosphatase 80 U/L Normal 45-117 Laboratory test 03/05/2019 [facility] Salicylate < 1.7 Low 2.8-20.0 [address] mg/[place] [address] [phone] CBC W/Automated 03/04/2019 [facility] White Blood 7.2 K/uL Normal 3.4-10.[address] [place] [address] [phone] Red Blood Count 5.80 M/uL Normal 4.20-5.80 Hemoglobin 16.1 gm/dL Normal 12.8-17.0 Hematocrit 47.6 % Normal 38.0-48.0 Mean Cell Volume 82.1 fl Normal 80.0-96.0 Mean Corpuscular HGB 27.8 pg Normal 27.0-33.0 Mean Corpuscular HGB Conc 33.8 g/dL Normal 31.7-36.0 Platelet Count 356 K/uL Normal 155-360 Red Cell Distri Width SD 38.9 fl Normal 36-51 Red Cell Distri Width %CV 13.3 % Normal 11.6-15.8 Mean Platelet Volume 10.0 fl Normal 6.6-10.6 Neut% 72.6 % High 28.0-68.0 Lymph % 18.4 % Low 20.0-42.0 [place] % 6.8 % Normal 0.0-10.0 Eo% 1.1 % Normal 0.0-6.6 Bas% 0.8 % Normal 0.0-1.1 Immature Grans 0.3 % Normal 0.0-5.0 NRBC % 0.0 /100WBC < 10/ 100 WBC Neut# 5.19 K/uL Normal 1.8-7.0 Lymph # 1.32 K/uL Normal 1.0-4.0 [place] # 0.49 K/uL Normal 0.0-0.8 Eos # 0.08 K/uL Normal 0.0-0.5 Baso # 0.06 K/uL Normal 0.0-0.1 Immature Grans Absolute 0.02 K/uL NRBC # 0.00 K/uL Ua RFX Micro & Culture 01/01/2019 [facility] Urine Color YELLOW Yellow 9 II [address] [place] [address] [phone] Urine Clarity CLEAR Clear Urine Glucose - Dipstick NEGATIVE mg/dL Negative Urine Bilirubin - Dipstick NEGATIVE Negative Urine Ketone NEGATIVE mg/dL Negative Urine Specific [place] 1.020 Normal 1.010-1.030 Urine Blood NEGATIVE Negative Urine PH 6.5 Normal 6.5-7.5 Urine Protein - Dipstick NEGATIVE mg/dL Negative Urine Urobilinogen - Dipstick 0.2 E.U./dL Normal 0.2-1.0 Urine Nitrite - Dipstick NEGATIVE Negative Urine Leuk Esterase NEGATIVE Negative Source: URINE, CLEAN CAT <SEE NOTE> 10 Urine Dipstick 12/21/2018 [facility] Ua Color Yellow Yellow Ua Clarity Clear Clear Ua Leuko Negative Negative Ua Nitrite Negative Negative Ua Urobilinogen Negative Low 0.2 - 1.0 E.U./dL Ua Protein Trace Negative Ua PH 6.0 Low 6.5-7.5 Ua Blood Negative Negative Ua Specific [place] 1.025 1.010-1.030 Ua Ketones Negative Negative Ua Bilirubin Negative Negative Ua Glucose Negative Negative Comprehensive 12/18/2018 [facility] Glucose 87 mg/dL Normal 74-106 11 Metabolic Panel [address] [place] [address] [phone] BUN 8 mg/dL Normal 7-18 Creatinine 1.0 mg/dL Normal 0.6-1.3 Glom Filtration Rate, Estimate >60 mL/min >60 If >60 mL/min >60 12 BUN/Creat 8.0 ratio Sodium 141 mmol/L Normal 136-145 Potassium 3.6 mmol/L Normal 3.5-5.1 Chloride 105 mmol/L Normal 98-107 Carbon Dioxide 29 mmol/L Normal 21-32 Anion Gap 7 mEq/L Low 8-16 Calcium 8.9 mg/dL Normal 8.5-10.1 Total Protein 7.3 g/dL Normal 6.4-8.2 Albumin 3.9 g/dL Normal 3.4-5.0 Globulin 3.4 g/dL Normal 1.9-4.3 Alb/Glob 1.1 ratio Bilirubin,Total 0.5 mg/dL Normal 0.2-1.0 Sgot/Ast 15 U/L Normal 15-37 SGPT/Alt 19 U/L Normal 12-78 Alkaline Phosphatase 76 U/L Normal 45-117 CBC W/Automated 12/18/2018 [facility] White Blood 5.8 K/uL Normal 3.4-10.[address] [place] [address] [phone] Red Blood Count 5.54 M/uL Normal 4.20-5.80 Hemoglobin 14.9 gm/dL Normal 12.8-17.0 Hematocrit 45.7 % Normal 38.0-48.0 Mean Cell Volume 82.5 fl Normal 80.0-96.0 Mean Corpuscular HGB 26.9 pg Low 27.0-33.0 Mean Corpuscular HGB Conc 32.6 g/dL Normal 31.7-36.0 Platelet Count 259 K/uL Normal 155-360 Red Cell Distri Width SD 41.9 fl Normal 36-51 Red Cell Distri Width %CV 13.9 % Normal 11.6-15.8 Mean Platelet Volume 9.4 fL Normal 6.6-10.6 Neut% 66.3 % Normal 28.0-68.0 Lymph % 20.7 % Normal 20.0-42.0 [place] % 9.8 % Normal 0.0-10.0 Eo% 2.9 % Normal 0.0-6.6 Bas% 0.3 % Normal 0.0-1.1 Neut# 3.85 K/uL Normal 1.8-7.0 Lymph # 1.20 K/uL Normal 1.0-4.0 [place] # 0.57 K/uL Normal 0.0-0.8 Eos # 0.17 K/uL Normal 0.0-0.5 Baso # 0.02 K/uL Normal 0.0-0.1 Urine Culture 12/10/2018 [facility] Urine Culture NO GROWTH: 13, [address] FINAL <[place] [address] NOTE> [phone] Ua RFX Micro 12/10/2018 [facility] Urine Color YELLOW Yellow & Culture II [address] [place], [place] [id number] [phone] Urine Clarity CLEAR Clear Urine Glucose - Dipstick NEGATIVE mg/dL Negative Urine Bilirubin - Dipstick NEGATIVE Negative Urine Ketone NEGATIVE mg/dL Negative Urine Specific [place] 1.020 Normal 1.010-1.030 Urine Blood NEGATIVE Negative Urine PH 6.0 Low 6.5-7.5 Urine Protein - Dipstick NEGATIVE mg/dL Negative Urine Urobilinogen - Dipstick 0.2 E.U./dL Normal 0.2-1.0 Urine Nitrite - Dipstick NEGATIVE Negative Urine Leuk Esterase NEGATIVE Negative Protein/Creatinine 12/10/2018 [facility] Creatinine,Urine 99.2 Not Ratio,Urine [address] mg/[place] [address] [phone] Protein,Total,Urine 5.0 mg/dL Not Estab. Protein/Creatinine Ratio 50 MG/GCRE 0-200 15 Chlam/GC/Trichomonas 12/10/2018 [facility] Ur Trichomonas NEGATIVE Negative PCR, Ur [address] vaginalis,PCR [place], [place] [id number] [phone] Ur Chlamydia trachomatis,PCR NEGATIVE Negative Ur Neisseria gonorrhoeae,PCR NEGATIVE Negative 16 Chlam/GC/Trichomonas 12/03/2018 [facility] Ur Trichomonas NEGATIVE Negative 17 PCR, Ur [address] vaginalis,PCR [place], [place] [id number] [phone] Ur Chlamydia trachomatis,PCR NEGATIVE Negative Ur Neisseria gonorrhoeae,PCR NEGATIVE Negative 18 Ua RFX Micro & Culture 12/03/2018 [facility] Urine Color YELLOW Yellow II [address] [place] [address] [phone] Urine Clarity CLEAR Clear Urine Glucose - Dipstick NEGATIVE mg/dL Negative Urine Bilirubin - Dipstick NEGATIVE Negative Urine Ketone NEGATIVE mg/dL Negative Urine Specific [place] 1.010 Normal 1.010-1.030 Urine Blood NEGATIVE Negative Urine PH 6.0 Low 6.5-7.5 Urine Protein - Dipstick NEGATIVE mg/dL Negative Urine Urobilinogen - Dipstick 0.2 E.U./dL Normal 0.2-1.0 Urine Nitrite - Dipstick NEGATIVE Negative Urine Leuk Esterase NEGATIVE Negative Source: URINE, CLEAN CAT <SEE NOTE> 19 HIV 1/2 AB 07/16/2018 [facility] HIV 1 2 Nonreactive Nonreactive 20, Evaluation [phone] Antibody 21 GC/Chlamydi 07/16/2018 [facility] Chlamydia Positive Abnormal Negative 22 a Amplified [phone] trachomatis Rna Rna Neisseria gonorrhoeae (GC) Rna Negative Negative Urine Culture And 07/16/2018 [facility] Urine SEE RESULT 23 Sensitivities [phone] Culture BELOW Poc Urinalysis 07/16/2018 [facility] Poc Negative Negative [phone] Glucose, Urine Poc Bilirubin, Urine Negative Negative Poc Ketone, Urine Negative Negative Poc Specific [place], Urine 1.020 Normal 1.010-1.030 Poc Blood, Urine Negative Negative Poc pH, Urine 6.0 Normal 5-9 Poc Protein, Urine Negative Negative Poc Urobilinogen, Urine 0.2 Negative Poc Nitrite, Urine Negative Negative Poc Leukocytes, Urine 1+ Abnormal Negative Poc Color, Urine Yellow Poc Clarity, Urine Clear 24 Laboratory Studies 07/16/2018 N2N/[facility] Import Bedside Urine 1.020 1.010- 1.030 Specific [place] (Lab Bedside Urine Urobilinogen (Lab) 0.2 Bedside Urine pH (Lab) 6.0 5-9 Urine Dipstick 05/07/2018 [facility] Ua Color yellow Yellow Ua Clarity clear Clear Ua Leuko trace Negative Ua Nitrite negative Negative Ua Urobilinogen 0.2 0.2 - 1.0 E.U./dL Ua Protein negative Negative Ua PH 7.5 6.5-7.5 Ua Blood negative Negative Ua Specific [place] 1.010 1.010-1.030 Ua Ketones negative Negative Ua Bilirubin negative Negative Ua Glucose negative Negative Hepatitis 05/07/[address] [facility] [address] Hepatitis A Negative Negative [address] [place] [address] [phone] HBsAg Screen [Ref Lab] Negative Negative Hepatitis B Core IgM Negative Negative HCV Signal/Cutoff ratio < 0.1 s/corat 0.0-0.9 26 Laboratory test 05/07/[address] [facility] [address] Treponema Negative Negative finding [address] [place] [address] [place] [phone] HIV 1/2 Rapid 05/07/[address] HIV 1/2 [place] Non-Reactive [address] [place] [address] [phone] Urine Culture 05/07/[address] [facility] [address] Urine Culture NO GROWTH: [address] FINAL <[place] [address] NOTE> [phone] Chlam/GC/Tricho 05/07/[address] [facility] [address] Ur Trichomonas Negative Negative monas PCR, Ur [address] vaginalis,[place] [address] [phone] Ur Chlamydia trachomatis,PCR POSITIVE Abnormal Negative Ur Neisseria gonorrhoeae,PCR Negative Negative 29 Chlam/GC/Trichomonas 03/20/[address] [address] Ur Trichomonas Negative Negative 30 PCR, Ur [address] vaginalis,[place] [address] [phone] Ur Chlamydia trachomatis,PCR Negative Negative Ur Neisseria gonorrhoeae,PCR Negative Negative 31 Urine Dipstick 03/20/2018 [facility] Ua Color yellow Yellow Ua Clarity clear Clear Ua Leuko neg Negative Ua Nitrite neg Negative Ua Urobilinogen 0.2 0.2 - 1.0 E.U./dL Ua Protein neg Negative Ua PH 8.0 High 6.5-7.5 Ua Blood neg Negative Ua Specific [place] 1.005 Low 1.010-1.030 Ua Ketones neg Negative Ua Bilirubin neg Negative Ua Glucose neg Negative LDL Cholesterol Profile 03/20/[address] [facility] [address] Cholesterol 128 mg/dL <220 06 [address] [place] [address] [phone] Triglycerides 97 mg/dL <150 33 HDL Cholesterol 32 mg/dL Low >40 34 LDL-Cholesterol 77 mg/dL < 100 35 Comprehensive 08/14/[address] [facility] [address] Glucose 90 mg/dL Normal 54-117 36 Metabolic Panel [address] [place] [address] [phone] BUN 13 mg/dL Normal 7-21 Creatinine 0.9 mg/dL Normal 0.8-1.4 Glom Filtration Rate, Estimate >60 mL/min If >60 mL/min BUN/Creat 14.4 ratio Sodium 139 mmol/L Normal 132-141 Potassium 3.9 mmol/L Normal 3.3-4.7 Chloride 108 mmol/L High 97-107 Carbon Dioxide 27 mmol/L High 16-25 Anion Gap 4 mEq/L Low 8-16 Calcium 9.0 mg/dL Normal 9.0-10.7 Total Protein 7.1 g/dL Normal 6.4-8.6 Albumin 4.1 g/dL Normal 3.8-5.6 Globulin 3.0 g/dL Normal 2.0-3.9 Alb/Glob 1.4 ratio Bilirubin,Total 0.3 mg/dL Sgot/Ast 14 U/L Normal 10-41 SGPT/Alt 27 U/L Normal 24-54 Alkaline Phosphatase 84 U/L Low 98-317 CBS W/Automated 08/14/[address] White Blood 5.1 K/uL Normal 4.5-13.5 Diff [address] [facility] [place] [address] [phone] Red Blood Count 5.39 M/uL High 4.50-5.30 Hemoglobin 14.7 gm/dL Normal 13.0-16.0 Hematocrit 44.3 % Normal 37.0-49.0 Mean Cell Volume 82.2 fl Normal 77.0-95.0 Mean Corpuscular HGB 27.3 pg Normal 25.0-30.0 Mean Corpuscular HGB Conc 33.2 g/dL Normal 31.7-36.0 Platelet Count 284 K/uL Normal 150-400 Red Cell Distri Width SD 41.4 fl Normal 36-51 Red Cell Distri Width %CV 13.9 % Normal 11.6-15.8 Mean Platelet Volume 10.3 fL Normal 6.6-10.6 Neut% 53.2 % Normal 28.0-68.0 Lymph % 28.7 % Normal 20.0-42.0 [place] % 11.4 % High 0.0-10.0 Eo% 6.1 % Normal 0.0-6.6 Bas% 0.6 % Normal 0.0-1.1 Neut# 2.70 K/uL Normal 1.8-7.0 Lymph # 1.46 K/uL Normal 1.0-4.0 [place] # 0.58 K/uL Normal 0.0-0.6 Eos # 0.31 K/uL Normal 0.0-0.5 Baso # 0.03 K/uL Normal 0.0-0.1 Laboratory test 08/14/2017 [facility] [address] Thyroid Stim 2.38 Normal 0.30 -4.20 finding [address] [facility] Hormone uIU/mL [place], [place] [id number] [phone] LDL Cholesterol 08/14/2017 [facility] [address] Cholesterol 122 mg/dL Normal 105-218 Profile [address] [place] [address] [phone] Triglycerides 40 mg/dL Normal 32-134 HDL Cholesterol 39 mg/dL Normal 28-72 LDL-Cholesterol 75 mg/dL Laboratory test 02/24/2017 [facility] Rapid Strep Negative Normal Negative 37 finding [phone] Molecular Comprehensive 12/07/2016 [facility] Glucose 75 mg/dL Normal 54-117 38 Metabolic Panel [address] [place] [address] [phone] BUN 13 mg/dL Normal 7-21 Creatinine 0.8 mg/dL Normal 0.8-1.4 Glom Filtration Rate, Estimate >60 mL/min If >60 mL/min BUN/Creat 16.2 ratio Sodium 145 mmol/L High 132-141 Potassium 3.4 mmol/L Normal 3.3-4.7 Chloride 113 mmol/L High 97-107 Carbon Dioxide 20 mmol/L Normal 16-25 Anion Gap 12 mEq/L Normal 8-16 Calcium 8.5 mg/dL Low 9.0-10.7 Total Protein 6.6 g/dL Normal 6.4-8.6 Albumin 3.7 g/dL Low 3.8-5.6 Globulin 2.9 g/dL Normal 2.0-3.9 Alb/Glob 1.3 ratio Bilirubin,Total 0.5 mg/dL Sgot/Ast 8 U/L Low 10-41 39 SGPT/Alt 14 U/L Low 24-54 40 Alkaline Phosphatase 89 U/L Low 98-317 Blood Culture 12/07/2016 [facility] Blood Culture NO GROWTH: FINAL [address] Aerobic <SEE NOTE> [place] [address] [phone] Blood Culture Anaerobic NO GROWTH: FINAL <SEE NOTE> 42 Ua Routine 12/07/2016 [facility] Urine Color STRAW Yellow [address] [place] [address] [phone] Urine Clarity CLEAR Clear Urine Glucose - Dipstick NEGATIVE mg/dL Negative Urine Bilirubin - Dipstick NEGATIVE Negative Urine Ketone 15 mg/dL High Negative Urine Specific [place] <=1.005 Low 1.010-1.030 Urine Blood SMALL Abnormal Negative Urine PH 6.0 Low 6.5-7.5 Urine Protein - Dipstick NEGATIVE mg/dL Negative Urine Urobilinogen - Dipstick 0.2 E.U./dL Normal 0.2-1.0 Urine Nitrite - Dipstick NEGATIVE Negative Urine Leuk Esterase NEGATIVE Negative Urine RBC 0-2 rbc/hpf 0-2 Urine WBC NONE SEEN wbc/hpf 0-7 Urine Epithelial Cells VERY FEW /lpf None Seen Urine Bacteria VERY FEW None Seen Source: URINE, CLEAN CAT <SEE NOTE> 43 Laboratory test 12/07/2016 [facility] Lactic Acid 0.7 mmol/L Low 1.0-1.[address] [place], [place] [id number] [phone] Blood Culture 12/07/2016 [facility] Blood Culture NO GROWTH: [address] Aerobic FINAL <[place] [address] NOTE> [phone] Blood Culture Anaerobic NO GROWTH: FINAL <SEE NOTE> 45 CBS W/Automated 09/12/2016 [facility] White 5.4 K/uL Normal 4.5-13.5 [address] [place] [address] Count [phone] Red Blood Count 5.73 M/uL High 4.50-5.30 Hemoglobin 15.6 gm/dL Normal 13.0-16.0 Hematocrit 46.0 % Normal 37.0-49.0 Mean Cell Volume 80.3 fl Normal 77.0-95.0 Mean Corpuscular HGB 27.2 pg Normal 25.0-30.0 Mean Corpuscular HGB Conc 33.9 g/dL Normal 31.7-36.0 Platelet Count 261 K/uL Normal 150-400 Red Cell Distri Width SD 39.0 fl Normal 36-51 Red Cell Distri Width %CV 13.4 % Normal 11.6-15.8 Mean Platelet Volume 10.1 fL Normal 6.6-10.6 Neut% 67.4 % Normal 28.0-68.0 Lymph % 20.9 % Normal 17.0-56.0 [place] % 9.8 % Normal 0.0-10.0 Eo% 1.5 % Normal 0.0-5.0 Bas% 0.4 % Normal 0.1-1.0 Neut# 3.64 K/uL Normal 1.8-7.0 Lymph # 1.13 K/uL Low 1.8-7.0 [place] # 0.53 K/uL Normal 0.0-0.6 Eos # 0.08 K/uL Normal 0.0-0.5 Baso # 0.02 K/uL Low 0.1-0.2 Basic Metabolic Panel 09/12/2016 [facility] Glucose 93 mg/dL Normal 54-117 [address] [place], [place] [id number] [phone] BUN 11 mg/dL Normal 7-21 Creatinine 0.9 mg/dL Normal 0.8-1.4 Glom Filtration Rate, Estimate >60 mL/min Normal If >60 mL/min Normal BUN/Creat 12.2 ratio Normal Sodium 142 mmol/L High 132-141 Potassium 3.8 mmol/L Normal 3.3-4.7 Chloride 108 mmol/L High 97-107 Carbon Dioxide 29 mmol/L High 16-25 Anion Gap 5 mEq/L Low 8-16 Calcium 9.1 mg/dL Normal 9.0-10.7 CMP Panel (14 Test) 09/02/2016 [facility] Glucose 72 mg/dL Normal 54-117 47 [address] [place] [address] [phone] BUN 12 mg/dL Normal 7-21 Creatinine 1.0 mg/dL Normal 0.8-1.4 Glom Filtration Rate, Estimate >60 mL/min Normal If >60 mL/min Normal BUN/Creat 12.0 ratio Normal Sodium 143 mmol/L High 132-141 Potassium 3.6 mmol/L Normal 3.3-4.7 Chloride 109 mmol/L High 97-107 Carbon Dioxide 30 mmol/L High 16-25 Anion Gap 4 mEq/L Low 8-16 Calcium 8.5 mg/dL Low 9.0-10.7 Total Protein 6.9 g/dL Normal 6.4-8.6 Albumin 4.0 g/dL Normal 3.8-5.6 Globulin 2.9 g/dL Normal 2.0-3.9 Alb/Glob 1.4 ratio Normal Bilirubin,Total 0.5 mg/dL Normal Sgot/Ast 15 U/L Normal 10-41 SGPT/Alt 15 U/L Low 24-54 48 Alkaline Phosphatase 106 U/L Normal 98-317 Laboratory test finding 09/02/2016 [facility] Amylase 54 U/L Normal <106 [address] [place] [address] [phone] Lipase 109 U/L Low 145-216 Laboratory test 09/02/2016 [facility] Sedimentation Rate 1 mm/hr Normal 0-15 finding [address] [place] [address] [phone] Magnesium 1.8 mg/dL Normal 1.6-2.1 Vitamin D,25-Hydroxy 19.4 ng/mL Low 30.0-100.0 49 Celiac 09/02/2016 [facility] Immunoglobulin A 222 mg/dL Normal 90-386 Disease Comp [address] [place] [address] [phone] Antigliadin Abs, IgG 3 units Normal 0-19 50 Antigliadin Abs, IgA 5 units Normal 0-19 51 Endomysial IgA Antibody Negative Normal Negative t-Transglutaminase IgA <2 U/mL Normal 0-3 52 t-Transglutaminase IgG <2 U/mL Normal 0-5 53 Laboratory test 09/02/2016 [facility] Thyroid 1.75 Normal 0.30-4.[address] Stim uIU/[place] [address] Hormone [phone] Free T4 1.01 ng/dL Normal 0.97-1.25 C-Reactive Protein,Quant < 2.9 mg/L Normal 0.7-7.9 Complement C4, Serum 20 mg/dL Normal 14-44 C1 Esterase Inhibitor 23 mg/dL Normal 21-39 C1 Esterase Inhibitor Function 93 %meanno Normal . 54 Smear For WBC'S 09/01/2016 [facility] Smear For WBC'S NONE SEEN Normal [address] [place] [address] [phone] Specimen Source: STOOL Smear Source: STOOL Normal Ova & Parasite 09/01/2016 [facility] Cryptosporidium NEGATIVE FOR 55 Antigen Screen [address] Specific Ag CRY <[place] [address] NOTE> [phone] Giardia Specific Antigen NEGATIVE FOR SUHA <SEE NOTE> 56 Stool Culture 09/01/2016 [facility] Stool Culture NO ENTERIC PATHO [address] <SEE NOTE> [place] [address] [phone] . ................ <SEE NOTE> Normal 58 Note: INCLUDES TESTING <SEE NOTE> Normal 59 . PLESIOMONAS, CAM <SEE NOTE> Normal 60 . ................ <SEE NOTE> Normal 61 . YERSINIA AND VIB <SEE NOTE> Normal 62 . SHOULD BE REQUES <SEE NOTE> Normal 63 Shiga Toxin 1 Antigen SHIGA TOXIN 1 NO <SEE NOTE> 64 Shiga Toxin 2 Antigen SHIGA TOXIN 2 NO <SEE NOTE> 65 Laboratory test 09/01/2016 [facility] Calprotectin, < 16 ug/g Normal 0-120 66 finding [address] Fecal [place] [address] [phone] Fecal Fat, 09/01/2016 [facility] Fats, Neutral Normal Normal . 67 Qualitative [address] [place] [address] [phone] Fats, Total Normal Normal . 68 Throat Culture 05/24/2016 [facility] Throat Culture NORMAL THROAT 69, 70 Complete [address] [place] <SEE NOTE> [place] [id number] [phone] @[facility] Pat Id: [id number] @[facility] Req #: [id number] Throat Culture 05/12/2016 [facility] Throat See Note [address] Culture [place] [address] Complete [phone] Laboratory test 05/11/2016 [facility] Laboratory Rapid Strep Negative Normal Negative 72 finding [phone] Molecular Laboratory test 05/11/2016 [facility] Laboratory Rapid Strep SEE RESULT 73, finding [phone] A BELOW 74 Comprehensive 04/09/2016 [facility] Glucose 105 mg/dL 54-117 Metabolic Panel [address] [place] [id number] [phone] BUN 10 mg/dL 7-21 Creatinine 0.9 mg/dL [...] U/L 10-41 SGPT/Alt 20 U/L Low 24-54 75 Alkaline Phosphatase 103 U/L 98-317 CBC W/Automated Diff 04/09/2016 [facility] White Blood 9.6 K/uL 4.5-13.[address] [place] [address] [phone] Red Blood Count 5.37 M/uL High 4.50-5.30 [...] % 28.0-68.0 Lymph % 22.9 % 17.0-56.0 [place] % 9.4 % 0.0-10.0 Eo% 1.0 % 0.0-5.0 Bas% 0.2 % 0.1-1.0 Neut# 6.39 K/uL 1.8-7.0 Lymph # 2.20 K/uL 1.8-7.0 [place] # 0.90 K/uL High 0.0-0.6 Eos # 0.10 K/uL 0.0-0.5 Baso # 0.02 K/uL Low 0.1-0.2 Laboratory test 04/09/2016 [facility] D-Dimer, < 0.22 [address] Quantitative ug/[place] [address] [phone] Laboratory test 04/09/2016 N2N/CCD Import Basophils # 0.02 Low 0.1-0 finding (Auto) .2 Basophils (%) (Auto) 0.2 0.1-1.0 Carbon Dioxide [...] Level 141 132-141 Type And Screen 03/23/2016 [facility] Type And Screen Canceled By Lab 77 [address] [place] [address] [phone] Type And Screen See Note 78 Patient Blood Type A POS Antibody Screen Negative Negative Celiac Disease AB 03/23/2016 [facility] Immunoglobulin A 245 mg/dL 90-386 Profile [address] [place] [address] [phone] Antigliadin Abs, IgG 3 units 0-19 79 Antigliadin Abs, IgA 6 units 0-19 80 Endomysial IgA Antibody Negative Negative t-Transglutaminase IgA <2 U/mL 0-3 81 t-Transglutaminase IgG <2 U/mL 0-5 82 Laboratory test finding 03/23/2016 N2N/CCD Import Anti-Gliadin IgA Ab 6 0-19 Deaminated Anti-Gliadin IgG Ab Deaminated 3 0-19 Endomysial IgA Antibody Titer Negative Negative Laboratory test 01/12/2016 [facility] H. Pylori Negative Negative 83 finding [address] [place] [address] Antigen [phone] Laboratory test 01/04/2016 [facility] Laboratory Lipase 19 U/L Normal 11.0-82.0 finding [phone] C Reactive Protein < 1.00 mg/L Normal < 5.00 84 Comp Metabolic 01/04/2016 [facility] Laboratory Sodium 138 mmol/ L Normal 133-145 Panel [phone] Potassium 3.5 mmol/L Normal 3.5-5.0 Chloride 105 mmol/L Normal 101-111 Co2 Carbon Dioxide 27 mmol/L Normal 22-32 Anion Gap 6 mmol/L Normal 2-11 Glucose 109 mg/dL High 70-100 Blood Urea Nitrogen 10 mg/dL Normal 6-24 Creatinine 0.77 mg/dL Normal 0.67-1.17 BUN/Creatinine Ratio 13.0 Normal 8-20 Calcium 9.2 mg/dL Normal 8.6-10.3 Total Protein 6.5 g/dL Normal 6.4-8.9 Albumin 4.4 g/dL Normal 3.2-5.2 Globulin 2.1 g/dL Normal 2-4 Albumin/Globulin Ratio 2.1 Normal 1-3 Total Bilirubin 0.30 mg/dL Normal 0.2-1.0 Alkaline Phosphatase 99 U/L Normal 34-104 Alt 9 U/L Normal 7-52 Ast 14 U/L Normal 13-39 Laboratory test 01/04/2016 [facility] Laboratory Lactic 1.3 mmol /L Normal 0.5-2.0 85 finding [phone] Acid Inr/Protime 01/04/2016 [facility] Laboratory Inr 1.05 Normal 0.89-1.11 [phone] CBC Auto Diff 01/04/2016 [facility] Laboratory White 6.5 Normal 3.5-10.8 [phone] Blood 10^3/uL Count Red Blood Count 5.76 10^6/uL High 4.0-5.4 Hemoglobin 15.5 g/dL Normal 14.0-18.0 Hematocrit 48 % Normal 42-52 Mean Corpuscular Volume 83 fL Normal 80-94 Mean Corpuscular Hemoglobin 27 pg Normal 27-31 Mean Corpuscular HGB Conc 33 g/dL Normal 31-36 Red Cell Distribution Width 13 % Normal 10.5-15 Platelet Count 278 10^3/uL Normal 150-450 Mean Platelet Volume 8 um3 Normal 7.4-10.4 Abs Neutrophils 3.8 10^3/uL Normal 1.5-7.7 Abs Lymphocytes 2.0 10^3/uL Normal 1.0-4.8 Abs Monocytes 0.4 10^3/uL Normal 0-0.8 Abs Eosinophils 0.1 10^3/uL Normal 0-0.6 Abs Basophils 0.1 10^3/uL Normal 0-0.2 Abs Nucleated RBC 0.01 10^3/uL Normal Granulocyte % 59.7 % Normal 38-83 Lymphocyte % 31.5 % Normal 25-47 Monocyte % 5.9 % Normal 1-9 Eosinophil % 2.1 % Normal 0-6 Basophil % 0.8 % Normal 0-2 Nucleated Red Blood Cells % 0.2 Normal Laboratory test 11/16/2015 [facility] Throat Strep See Note [address] [place] [address] [phone] Urinalysis With 09/27/2015 [facility] Urine Color ORANGE Yellow Microscopic [address] [place] [address] [phone] Urine Clarity CLEAR Clear Urine Glucose - Dipstick 100 mg/dL High Negative Urine Bilirubin - Dipstick NEGATIVE Negative Urine Ketone NEGATIVE mg/dL Negative Urine Specific [place] 1.010 1.010-1.030 Urine Blood NEGATIVE Negative Urine PH 6.0 Low 6.5-7.5 Urine Protein - Dipstick TRACE mg/dL Negative Urine Urobilinogen - Dipstick 2.0 E.U./dL High 0.2-1.0 Urine Nitrite - Dipstick POSITIVE High Negative Urine Leuk Esterase NEGATIVE Negative Urine RBC NONE SEEN rbc/hpf 0-2 Urine WBC NONE SEEN wbc/hpf 0-7 Urine Epithelial Cells NONE SEEN NONESEEN/lpf Urine Amorph Sediment SMALL Negative Laboratory test 09/27/2015 [facility] Culture If See Note [address] [place] [address] [phone] Ua RFX Micro + Culture II See Note 88 Urine Culture See Note 89 Chlamydia/GC Diana, 09/27/2015 [facility] Chlamydia Negative Urine [address] Trachomatis,[place] [address] -Diana [phone] Neisseria Gonorrhoeae,Ur -Diana Negative 90 Laboratory test 08/19/2015 N2N/CCD Import Basophils # (Auto) 0.02 Low 0.1 -0.2 finding Basophils (%) (Auto) 0.2 0.1-1.0 Eosinophils # [...] 36-51 Sodium Level 140 132-141 CBC W/Automated 08/19/2015 [facility] White Blood 10.9 K/uL 4.5-13.[address] [place] [address] [phone] Red Blood Count 5.66 M/uL High 4.50-5.30 [...] 28.0-68.0 Lymph % 11.2 % Low 17.0-56.0 [place] % 7.2 % 0.0-10.0 Eo% 1.8 % 0.0-5.0 Bas% 0.2 % 0.1-1.0 Neut# 8.64 K/uL High 1.8-7.0 Lymph # 1.22 K/uL Low 1.8-7.0 [place] # 0.78 K/uL High 0.0-0.6 Eos # 0.20 K/uL 0.0-0.5 Baso # 0.02 K/uL Low 0.1-0.2 Laboratory test 08/19/2015 [facility] Lipase 92 U/L Low 145-216 finding [address] [place] [address] [phone] Urinalysis With 08/19/2015 [facility] Urine Color YELLOW Yellow Microscopic [address] [place] [address] [phone] Urine Clarity CLOUDY Clear Urine Glucose - Dipstick NEGATIVE mg/dL Negative Urine Bilirubin - Dipstick NEGATIVE Negative Urine Ketone NEGATIVE mg/dL Negative Urine Specific [place] 1.015 1.010-1.030 Urine Blood MODERATE High Negative Urine PH 6.0 Low 6.5-7.5 Urine Protein - Dipstick TRACE mg/dL Negative Urine Urobilinogen - Dipstick 0.2 E.U./dL 0.2-1.0 Urine Nitrite - Dipstick NEGATIVE Negative Urine Leuk Esterase MODERATE High Negative Urine RBC 20-30 rbc/hpf High 0-2 Urine WBC > 50 wbc/hpf High 0-7 Urine Epithelial Cells NONE SEEN NONESEEN/lpf Urine Bacteria FEW NONESEEN Laboratory test 08/19/2015 [facility] Ua RFX Micro + See Note [address] [place] [address] [phone] Urine Culture See Note 92 Laboratory test 08/19/2015 N2N/CCD Import Urine Bilirubin Negative Negative finding Urine Glucose (Ua) Negative Negative Urine Ketones Negative Negative Urine Leukocyte Esterase Moderate High Negative Urine Nitrite Negative Negative Urine Protein Trace Negative Urine Urobilinogen 0.2 0.2-1.0 Comprehensive Metabolic 08/19/2015 [facility] Glucose 97 mg/dL 54-[address] [place], [place] [address] [phone] BUN 12 mg/dL 7-21 Creatinine 0.9 mg/dL [...] U/L 10-36 SGPT/Alt 14 U/L Low 24-59 93 Alkaline Phosphatase 125 U/L Low 169-618 Chlamydia/GC Diana, 08/19/2015 [facility] Chlamydia Negative Urine [address] Trachomatis,[place] [address] -Diana [phone] Neisseria Gonorrhoeae,Ur -Diana Negative 94 Drugs Of 07/02/2015 [facility] Amphetamines (Urine) Negative Abuse-Urine Screen [address] [place] [address] [phone] Barbiturates (Urine) Negative Benzodiazepines (Urine) Negative Cannabinoids (Urine) Negative Cocaine Metabolite (Urine) Negative Methadone (Urine) Negative Opiates (Urine) Negative Urine Cutoffs * 95 Laboratory test 07/02/2015 N2N/CCD Import Urine Amphetamines Negative finding Screen Urine Barbiturates Screen Negative Urine Benzodiazepines Screen Negative Urine Cannabinoids Screen Negative Urine Cocaine Screen Negative Urine Drug Screen Information * Urine Methadone Screen Negative Urine Opiates Screen Negative Comprehensive Metabolic 05/19/2015 [facility] Glucose 89 mg/dL 54-[address] [place] [address] [phone] BUN 8 mg/dL 7-21 Creatinine 0.8 mg/dL [...] U/L 10-36 SGPT/Alt 22 U/L Low 24-59 96 Alkaline Phosphatase 119 U/L Low 169-618 CBC W/Automated Diff 05/19/2015 [facility] White Blood 5.7 K/uL 4.5-13.[address] [place] [address] [phone] Red Blood Count 5.65 M/uL High 4.50-5.30 [...] % 28.0-68.0 Lymph % 24.0 % 17.0-56.0 [place] % 13.2 % High 0.0-10.0 Eo% 6.3 % High 0.0-5.0 Bas% 0.7 % 0.1-1.0 Neut# 3.16 K/uL 1.8-7.0 Lymph # 1.36 K/uL Low 1.8-7.0 [place] # 0.75 K/uL High 0.0-0.6 Eos # 0.36 K/uL 0.0-0.5 Baso # 0.04 K/uL Low 0.1-0.2 Laboratory test 05/19/2015 [facility] D-Dimer, < 0.22 [address] Quantitative ug/[place] [address] [phone] Laboratory test 05/19/2015 N2N/CCD Import Basophils # 0.04 Low 0.1-0 finding (Auto) .2 Basophils (%) (Auto) 0.7 0.1-1.0 Eosinophils # [...] Width 38.8 36-51 Sodium Level 140 132-141 1 ETOH/PAIN IN FACE AND RIGHT SIDED FLANK PAIN 2 URINE, CLEAN CATCH 3 Acetaminophen concentration >150 ug/mL at four hours after ingestion and 50.0 ug/mL at twelve hours after ingestion are often associated with toxic reactions. 4 Original specimen hemolyzed. Called [facility] at 0030 on 03/05/19 for specimen recollection. 5 URINE SPECIMENS ARE SCREENED AT THE LISTED CUTOFFS DRUG CLASS INITIAL TEST LEVEL Amphetamines 1000 ng/mL Barbiturates 200 ng/mL Benzodiazepines 200 ng/mL Cannabinoids 50 ng/mL Cocaine Metabolite 300 ng/mL Methadone 300 ng/mL Opiates 300 ng/mL Any PRESUMPTIVE POSITIVE findings are UNCONFIRMED. Confirmatory testing is suggested if findings are unexpected. Please contact laboratory if confirmatory testing is desired. SPECIMENS ARE HELD FOR 72 HOURS. 6 Note: Persistent reduction for 3 months or more in an eGFR <60 mL/min/1.73 m2 defines CKD. Patients with eGFR values >/=60 mL/min/1.73 m2 may also have CKD if evidence of persistent proteinuria is present. The original MDRD equation for estimated GFR is not valid for patients less than 18 years of age. Additional information may be found at www.kdoqi.org. 7 Values below the stated reference ranges of AST and ALT can be seen in normal populations. Clinical correlation is suggested. 8 THERAPEUTIC RANGE: 15-30 mg/dL POTENTIAL TOXICITY VARIES WITH TIME FROM INGESTION. PLEASE CONSULT APPROPRIATE NOMOGRAM. 9 R30.0 10 URINE, CLEAN CATCH 11 M54.9 12 Note: Persistent reduction for 3 months or more in an eGFR <60 mL/min/1.73 m2 defines CKD. Patients with eGFR values >/=60 mL/min/1.73 m2 may also have CKD if evidence of persistent proteinuria is present. The original MDRD equation for estimated GFR is not valid for patients less than 18 years of age. Additional information may be found at www.kdoqi.org. 13 R30.0 R35.0 M54.9 14 NO GROWTH: FINAL REPORT 15 INFCE Result Units: mg/g creat Performed at: RN - [facility] [address] [id number] [employer]: Danielle Morales MD, Phone: [phone] 16 A negative result for either C. trachomatis and/or N. gonorrhoeae does not preclued an infection because results are dependent on adequate specimen collection, absence of inhibitors, and sufficient DNA to be detected. 17 Z11.3 18 A negative result for either C. trachomatis and/or N. gonorrhoeae does not preclued an infection because results are dependent on adequate specimen collection, absence of inhibitors, and sufficient DNA to be detected. 19 URINE, CLEAN CATCH 20 [id number] 21 It is recognized that currently available assays for the detection of antibodies to HIV-1 and/or HIV-2 may not detect all infected individuals. HIV antibodies may be undetectable in some stages of the infection and in some clinical conditions. The performance of this assay has not been established for populations of infants or children. Assayed by Chemiluminescence Microparticle Immunoassay on the Siemens Advia Centaur CP. Values obtained with different methods or kits cannot be used interchangeably.The diagnostic specificity of the ADVIA Centaur 1/O/2 Enhanced assay in the low risk population was 99.90% (6052/6058) with a 95% confidence interval of 99.78 to 99.96%. 22 [id number] 23 SEE RESULT BELOW Name: NAZANIN JOSUE III : [address]: Calvin Finney MD Acct: [id number] Unit: [id number] AGE: 17 Location: [facility] Re07/16/18 SEX: M Status: DEP ER SPEC: [id number] MORIAH: 07/16/[facility] DR: Calvin Finney MD REQ: [id number] RECD: 07/16/18 STATUS: COMP [facility] DR: Mary Anderson MD _ SOURCE: URINE [facility]: ORDERED: Urine Culture COMMENTS: [id number] Procedure Result Reported Site Urine Culture Final 07/17/18807 ML No Growth (<1,000 CFU/mL) * ML - Main Lab . END OF REPORT DEPARTMENT OF PATHOLOGY, [address] [place] [address] Reggie Banegas M.D. Director [facility] # [id number] Cutter Machine: [id number] 25 Z11.3 26 INFCE Result Units: s/co ratio Negative: < 0.8 Indeterminate: 0.8 - 0.9 Positive: > 0.9 The CDC recommends that a positive HCV antibody result be followed up with a HCV Nucleic Acid Amplification test (849986). Performed at: [address] [id number] [employer]: Danielle Morales MD, Phone: [phone] Performed at: [address] [id number] [employer]: Marquis Fry MD, Phone: [phone] 27 NOTE: A NON-REACTIVE RESULT INDICATES THAT HIV 1/2 ANTIBODIES HAVE NOT BEEN FOUND IN THIS PATIENT SPECIMEN. A NON-REACTIVE RESULT, HOWEVER, DOES NOT PRECLUDE PREVIOUS EXPOSURE OF INFECTION WITH HIV 1/2. Method: Uni-Gold Recombigen HIV 1/2 Rapid Immunoassay frintit * [place] STATE LAW PROHIBITS THE REDISCLOSURE OF THIS RESULT * * TO ANY UNAUTHORIZED [employer]. * 09/14/18 1235: HIV 1/2 Unigold previously reported as: Non-Reactive NO CALL INDICATED,RESULTS THE SAME, REGULATORY COMMENT ADDED Amended result called to: - 09/14/18 at 1235 28 NO GROWTH: FINAL REPORT 29 A negative result for either C. trachomatis and/or N. gonorrhoeae does not preclued an infection because results are dependent on adequate specimen collection, absence of inhibitors, and sufficient DNA to be detected. 30 Z13.220 31 A negative result for either C. trachomatis and/or N. gonorrhoeae does not preclued an infection because results are dependent on adequate specimen collection, absence of inhibitors, and sufficient DNA to be detected. 32 Reference Guidelines*: Desirable: ........... < 200 mg/dL Borderline High: ..... 200-239 mg/dL High: ................ >=240 mg/dL * The National Cholesterol Education Program (NCEP) 33 Reference Guidelines*: Normal: ............. < 150 mg/dL Borderline High: .... 150-199 mg/dL High: ............... 200-499 mg/dL Very High: .......... > 500 mg/dL * Source: National Cholesterol Education Program (NCEP) 34 Reference Guidelines*: Low HDL: ..... < 40 mg/dL Normal: ..... 40-60 mg/dL Desirable: ... > 60 mg/dL *The National Cholesterol Education Program(NCEP) 35 Reference Guidelines*: Optimal:........... <100 mg/dL Near Optimal....... 100-129 mg/dL Borderline High.... 130-159 mg/dL High............... 160-189 mg/dL Very High.......... >=190 mg/dL * Source: National Cholesterol Education Program (NCEP) 36 R03.0 37 Cutter Machine: [id number] 38 PBR OFFERED-DECLINED 39 Values below the stated reference ranges of AST and ALT can be seen in normal populations. Clinical correlation is suggested. 40 Values below the stated reference ranges of AST and ALT can be seen in normal populations. Clinical correlation is suggested. 41 NO GROWTH: FINAL REPORT 42 NO GROWTH: FINAL REPORT 43 URINE, CLEAN CATCH 44 NO GROWTH: FINAL REPORT 45 NO GROWTH: FINAL REPORT 46 POSSIBLE HERNIA 47 R10.84 R19.7 48 Values below the stated reference ranges of AST and ALT can be seen in normal populations. Clinical correlation is suggested. 49 Vitamin D deficiency has been defined by the [place] of [employer] and an Endocrine Society practice guideline as a level of serum 25-OH vitamin D less than 20 ng/mL (1,2). The Endocrine Society went on to further define vitamin D insufficiency as a level between 21 and 29 ng/mL (2). 1. IOM ([place] of [employer]). 2010. Dietary reference intakes for calcium and D. [place]: The National Academies Press. 2. Paulo MF, Leslie RICHARD, Mirella VARGAS, et al. Evaluation, treatment, and prevention of vitamin D deficiency: an Endocrine Society clinical practice guideline. JCEM. 2010; 96(7):1911-30. Performed at: [address] [id number] [employer]: Danielle Morales MD, Phone: [phone] 50 Negative 0 - 19 Weak Positive 20 - 30 Moderate to Strong Positive >30 51 Negative 0 - 19 Weak Positive 20 - 30 Moderate to Strong Positive >30 52 Negative 0 - 3 Weak Positive 4 - 10 Positive >10 Tissue Transglutaminase (tTG) has been identified as the endomysial antigen. Studies have demonstr- ated that endomysial IgA antibodies have over 99% specificity for gluten sensitive enteropathy. 53 Negative 0 - 5 Weak Positive 6 - 9 Positive >9 54 INFCE Result Units: %mean normal Abnormal <41 Equivocal 41 - 67 Normal >67 Performed at: [address] [id number] [employer]: Dnaielle Morales MD, Phone: [phone] Performed at: [address] [id number] [employer]: Marquis Fry MD, Phone: [phone] 55 NEGATIVE FOR CRYPTOSPORIDIUM SPECIFIC ANTIGEN 56 NEGATIVE FOR GIARDIA SPECIFIC ANTIGEN. The specimen will be held for 5 days. Additional testing may be performed upon request if the antigen tests are negative, and the patient is still symptomatic or has traveled to an endemic region. 57 NO ENTERIC PATHOGENS ISOLATED 58 ................................................... 59 INCLUDES TESTING FOR SALMONELLA, SHIGELLA, AEROMONAS, 60 PLESIOMONAS, CAMPYLOBACTER, AND E. COLI 0157:H7 61 ................................................... 62 YERSINIA AND VIBRIO ARE NOT ROUTINELY SCREENED FOR AND 63 SHOULD BE REQUESTED SEPARATELY 64 SHIGA TOXIN 1 NOT DETECTED 65 SHIGA TOXIN 2 NOT DETECTED 66 Concentration Interpretation Follow-Up <16 - 50 ug/g Normal None >50 -120 ug/g Borderline Re-evaluate in 4-6 weeks >120 ug/g Abnormal Repeat as clinically indicated Performed at: - [facility] [id number] [employer]: Marquis Fry MD, Phone: [phone] 67 Normal (<60 Droplets/HPF) 68 Normal (<100 Droplets/HPF) Performed at: [facility] [id number] [employer]: Danielle Morales MD, Phone: [phone] 69 R01. 70 NORMAL THROAT RONEL 71 Organism 1 ! BETA HEMOLYTIC STREP NON A Quantity ! MANY 72 Cutter Machine: [id number] Erik Koenig Due to the increased sensitivity of molecular testing, reflex cultures are no longer performed. 73 THROAT PER [id number] 74 SEE RESULT BELOW Name: NAZANIN JOSUE III : [address]: Stefan Rios MD Acct: [id number] Unit: [id number] AGE: 15 Location: ED Re05/10/16 SEX: M Status: REG ER SPEC: [id number] MORIAH: 05/11/16-5 [facility] DR: Sol SIMON REQ: [id number] RECD: 05/11/166 STATUS: WES MORALES DR: Krysta Armijo MD [facility] _ SOURCE: THROAT SPDESC: ORDERED: Strep A Request COMMENTS: THROAT PER [id number] Procedure Result Reported Site Rapid Strep A Request Final 05/11/16- 0124 ML Specimen received for Rapid Strep A Molecular testing * ML - MAIN LAB ([facility]) . END OF REPORT * ML=Testing performed at Main Lab DEPARTMENT OF PATHOLOGY, [address] [place] [address] Reggie Banegas M.D. Director [facility] # [id number] 75 Values below the stated reference ranges of AST and ALT can be seen in normal populations. Clinical correlation is suggested. 76 <=0.49 ug/mL - Low likelihood of DIC, DVT or Pulmonary Embolism >0.49 ug/mL - Additional testing should be done to rule out DIC, DVT, or Pulmonary embolism as clinically indicated. ([facility] has established a 97.89% negative predictive value for thrombotic disease when a cutoff value of 0.5 ug/mL is used.) 77 100.0750 03/23/16 LAB.EMM1 MANUAL TYPE INDICATED 78 100.0650 06/15/16 LAB.EMM1 ECHO ISSUE RESOLVED 79 Negative 0 - 19 Weak Positive 20 - 30 Moderate to Strong Positive >30 80 Negative 0 - 19 Weak Positive 20 - 30 Moderate to Strong Positive >30 81 Negative 0 - 3 Weak Positive 4 - 10 Positive >10 Tissue Transglutaminase (tTG) has been identified as the endomysial antigen. Studies have demonstr- ated that endomysial IgA antibodies have over 99% specificity for gluten sensitive enteropathy. 82 Negative 0 - 5 Weak Positive 6 - 9 Positive >9 Performed at: [facility] [address] [id number] [employer]: Danielle Morales MD, Phone: [phone] Performed at: [facility] [id number] [employer]: Danielle Morales MD, Phone: [phone] 84 Acute inflammation: >10.00 85 [place] Severe Sepsis and Septic Shock Management Bundle Measure requires all lactic acids initially measuring >2.0mmol/L be repeated. 86 NO BETA STREPTOCOCCI ISOLATED 87 CULTURE TO FOLLOW 88 09/27/15 LAB.DWM Deleted by [employer] [facility] 89 NO GROWTH: FINAL REPORT 90 A negative result for either C. trachomatis and/or N. gonorrhoeae does not preclued an infection because results are dependent on adequate specimen collection, absence of inhibitors, and sufficient DNA to be detected. 91 08/19/15 LAB.JRD Deleted by [employer] [facility] 92 Organism 1 ! ESCHERICHIA COLI Quantity ! [...] S GENTAMICIN <=1 S TOBRAMYCIN <=1 S 93 Values below the stated reference ranges of AST and ALT can be seen in normal populations. Clinical correlation is suggested. 94 A negative result for either C. trachomatis and/or N. gonorrhoeae does not preclued an infection because results are dependent on adequate specimen collection, absence of inhibitors, and sufficient DNA to be detected. 95 URINE SPECIMENS ARE SCREENED AT THE LISTED CUTOFFS DRUG CLASS INITIAL TEST LEVEL Amphetamines 1000 ng/mL Barbiturates 200 ng/mL Benzodiazepines 200 ng/mL Cannabinoids 50 ng/mL Cocaine Metabolite 300 ng/mL Methadone 300 ng/mL Opiates 300 ng/mL Any POSITIVE findings are UNCONFIRMED. Confirmatory testing is suggested if findings are unexpected. Please contact laboratory if confirmatory testing is desired. SPECIMENS ARE HELD FOR 72 HOURS. 96 Values below the stated reference ranges of AST and ALT can be seen in normal populations. Clinical correlation is suggested. 97 <=0.49 ug/mL - Low likelihood of DIC, DVT or Pulmonary Embolism >0.49 ug/mL - Additional testing should be done to rule out DIC, DVT, or Pulmonary embolism as clinically indicated. ([facility] has established a 97.89% negative predictive value for thrombotic disease when a cutoff value of 0.5 ug/mL is used.) Procedures Date Code Description Status 01/07/2019 02142 Theraputic Or Diagnostic Injection Completed 06/14/2018 00793 Radiology, Finger(S), Two Views Completed 05/29/2018 75190 Radiology, Hand: Minimum Three Views Completed 05/29/2018 92380 Fracture-closed finger or thumb Completed 02/20/2018 69286 Arthroscopy Shoulder Debridement Extensive Completed 01/19/2018 19118 Asp./Injection major joint Completed 01/10/2018 99789 Radiology, Shoulder: Two Views (Sso) Completed 01/10/2018 34467 Radiology, Shoulder: Two Views (Sso) Completed 12/18/2017 61046 Radiology, Shoulder: Two Views (Sso) Completed 12/18/2017 03089 Radiology, Shoulder: Two Views (Sso) Completed 06/13/2017 46615 Repair of ruptured musculotendinous (rotator cuff) open Completed 06/13/2017 05642 Claviculectomy;partial open Completed 04/21/2017 44267 EKG-Tracing And Report Completed 12/01/2016 60771 Visual Screening Test Of Visual Acuity, Quantitative, Completed Bilateral 09/08/2016 84960 Colonoscopy With Biopsy Completed 09/08/2016 94587 EGD With Biopsy Completed 09/08/2016 63196387 Colonoscopy Completed 07/10/2015 21429 Visual Screening Test Of Visual Acuity, Quantitative, Completed Bilateral Encounters Type Date Location Provider Dx Diagnosis Office Visit 02/22/2019 Family Stacy Montes M54.Gregorio Okeefe, 2:45p Rlyan Stark MD, PHD unspecified M54.5 Low back pain M54.14 Radiculopathy, thoracic region M54.17 Radiculopathy, lumbosacral region Office Visit 02/20/2019 3:00p Orthopaedic Lee, M75.41 Impingement Office MD Karis syndrome of right shoulder Office Visit 01/07/2019 2:45p Yesy Win.Rylan Graf MD, unspecified PHD M54.5 Low back pain M54.14 Radiculopathy, thoracic region M54.17 Radiculopathy, lumbosacral region Office Visit 01/01/2019 1:45p Urology Joel Bolivar, M54.5 Low back pain PA Office Visit 12/21/2018 2:15p Urology Joel Bolivar, N20.0 Calculus of kidney PA M54.5 Low back pain Office Visit 12/17/2018 4:30p Yesy Win.Rylan Graf MD, unspecified PHD R30.0 Dysuria R35.0 Frequency of micturition Office Visit 12/10/2018 4:00p Yesy Win.Rylan Graf MD, unspecified PHD R30.0 Dysuria R35.0 Frequency of micturition Office Visit 05/07/2018 11:15a Family Medicine Mildred Galeana PA R30.[address] Z11.3 Encntr screen for infections w sexl mode of transmiss Office Visit 03/22/2018 9:15a Family Medicine Mary Anderson, J06.[address] M.D. respiratory infection, unspecified Office Visit 03/20/2018 9:30a Family Medicine Mildred Najera, Z23 Encounter for [address] PA immunization Z00.01 Encounter for general adult medical exam w abnormal findings Z11.3 Encntr screen for infections w sexl mode of transmiss Z23 Encounter for immunization Z13.220 Encounter for screening for lipoid disorders M75.41 Impingement syndrome of right shoulder Office Visit 02/05/2018 Yamileth Lee, S43.421D Sprain of right 9:15a Office MD Karis rotator cuff capsule, subsequent encounter Office Visit 01/25/2018 Yamileth Lee S43.421D Sprain of right 8:45a Office MD Karis rotator cuff capsule, subsequent encounter Office Visit 01/19/2018 Yamileth Green, S43.421D Sprain of right 1:15p Office Ivanna, PA rotator cuff capsule, subsequent encounter Office Visit 01/10/2018 Yamileth Green, S43.421D Sprain of right 9:00a Office Ivanna, PA rotator cuff capsule, subsequent encounter S43.401D Unspecified sprain of right shoulder joint, subs encntr Office Visit 01/09/2018 Ivanna Aguilar, S43.401D Unspecified 8:30a Office PA sprain of right shoulder joint, subs encntr Office Visit 12/18/2017 Ivanna Aguilar, S43.421D Sprain of right 2:15p Office PA rotator cuff capsule, subsequent encounter Office Visit 12/12/2017 Ivanna Aguilar, S43.421D Sprain of right 2:45p Office PA rotator cuff capsule, subsequent encounter S40.011A Contusion of right shoulder, initial encounter Office Visit 12/04/2017 [facility] Godwin Najera, J06.9 Acute upper 2:15p ALFRED Alvarez RD respiratory infection, unspecified Office Visit 12/01/2017 [facility] Godwin Najera, J06.9 Acute upper 10:15a ALFRED Alvarez RD respiratory infection, unspecified Office Visit 11/01/2017 Family Medicine Flyune, K29.00 Acute gastritis 11:45a Prabhjot Garcia without bleeding , [employer] Office Visit 09/13/2017 Yamileth Green S43.421D Sprain of right 11:15a Office Ivanna, PA rotator cuff capsule, subsequent encounter M25.561 Pain in right knee Office 08/14/2017 [facility] Godwin Najera, R03.0 Elevated Visit 9:45a ALFRED Alvarez RD blood-pressure reading, w/o diagnosis of htn Office 07/03/2017 [facility] Marcus, J45.901 Unspecified asthma Visit 9:45a Prabhjot Khan MD with (acute) exacerbation Office 06/28/2017 [facility] Mary Anderson, Z23 Encounter for Visit 11:15a Prabhjot SMITH M.D. immunization Office 05/31/2017 [facility] Ra, H10.89 Other conjunctivitis Visit 10:15a ARLETH Davis RD Office 05/12/2017 Yamileth Stanley, S43.421S Sprain of right Visit 10:30a Office Sacha rotator cuff Jose Luis hidalgo sequela Office 04/27/2017 [facility] Mary Anderson, J45.20 Mild intermittent Visit 1:30p Prabhjot SMITH M.D. asthma, uncomplicated Office 04/25/2017 Orthopaedic Peter S43.101D Unsp dislocation of Visit 2:00p Office Ivanna, PA right acromioclavicular joint, subs S43.491A Other sprain of right shoulder joint, initial encounter Office Visit 04/21/2017 9:45a [facility] Mary Anderson, B34.9 Viral infection, Prabhjot SMITH M.D. unspecified R07.9 Chest pain, unspecified Office 03/28/2017 Orthopaedic Peter, S43.101A Unsp dislocation of Visit 1:30p Office ALFRED Goncalves right acromioclavicular joint, init Office 03/23/2017 [facility] Mary Anderson, M25.511 Pain in right Visit 10:45a Prabhjot SMITH M.D. shoulder H72.2x1 Other marginal perforations of tympanic membrane, right ear Office Visit 03/15/2017 Family Knapp M25.511 Pain in right 11:00a Medicine ARLETH Vang shoulder RD W01.0xxA Fall same lev from slip/trip w/o strike against object, init Office Visit 03/15/2017 3:00p JAROCHO Ramos, R10.84 Generalized MD abdominal pain Office Visit 12/08/2016 1:30p [facility] Godwin Jean, B34.9 Viral infection, Prabhjot Leigh, unspecified PNP-BC, [employer], Ibclc Office Visit 11/23/2016 4:00p [facility] Godwin Jean, S93.401A Sprain of Prabhjot Leigh, unspecified PNP-BC, [employer], ligament of right Ibclc ankle, init encntr W03.xxxA Oth fall same lev due to collision w another person, init Y93.67 Activity, basketball Y92.[address] of occurrence of the external cause Office Visit 11/03/2016 4:00p Family Mann J01.10 Acute frontal Medicine Prabhjot Barbour, sinusitis, RD [employer]EM[employer] PIPE-C unspecified Office Visit 09/15/2016 11:15a Mary Mortensen, K44.9 Diaphragmatic Medicine Prabhjot Amaya hernia without RD obstruction or gangrene Office Visit 09/14/2016 2:30p JAROCHO Ramos MD R10.84 Generalized abdominal pain K29.00 Acute gastritis without bleeding K44.9 Diaphragmatic hernia without obstruction or gangrene E55.9 Vitamin D deficiency, unspecified Office Visit 09/06/2016 3:30p [facility] Mary Del Rosario, R10.84 Generalized West LUIS Amaya abdominal pain Office Visit 08/31/2016 11:00a JAROCHO Ramos MD R10.84 Generalized abdominal pain K62.5 Hemorrhage of anus and rectum R19.7 Diarrhea, unspecified Office Visit 08/24/2016 10:00a [facility] Medicine Lu Jean, R10.84 Generalized West LUIS PNP-BC, [employer], abdominal pain Ibclc R19.7 Diarrhea, unspecified K62.5 Hemorrhage of anus and rectum Office Visit 07/12/2016 2:30p Family Godwin Mann, R19.7 Diarrhea, West LUIS Barbour, unspecified [employer]-C Z23 Encounter for immunization Office Visit 06/01/2016 Mary Mortensen, K21.9 Gastro-esophageal 3:15p Medicine Prabhjot Amaya reflux disease without RD esophagitis Office Visit 05/24/2016 Mary Mortensen, R07.0 Pain in throat 1:00p Medicine Prabhjot Amaya RD Office Visit 05/12/2016 Mary Mortensen, R07.0 Pain in throat 10:45a Medicine Prabhjot Amaya RD K21.9 Gastro-esophageal reflux disease without esophagitis J30.9 Allergic rhinitis, unspecified Office Visit 05/10/2016 4:30p Family Mary Del Rosario, R07.0 Pain in throat [address] RD M.DYordan R07.0 Pain in throat Office Visit 04/22/2016 9:45a Family Mary Del Rosario M.D. R14.[address] Office Visit 03/23/2016 9:30a Family Mary Del Rosario M.D. R14.[address] R10.84 Generalized abdominal pain Z23 Encounter for immunization Office Visit 02/02/2016 11:30a Family Medicine Mary Anderson J06.[address] M.D. respiratory infection, unspecified J45.990 Exercise induced bronchospasm R10.13 Epigastric pain L20.9 Atopic dermatitis, unspecified Office Visit 01/12/2016 2:00p [facility] Medicine Mary Anderson, R10.[address] M.D. Office Visit 01/06/2016 9:00a [facility] Medicine Mary Anderson R10.[address] M.DYordan K59.00 Constipation, unspecified Office Visit 12/09/2015 2:45p Family Medicine Zofia, R51 Headache [address] Jose Luis Chaparro Office Visit 12/03/2015 10:00a Family Medicine Ra, R12 Heartburn [address] Radha, [employer] Office Visit 11/16/2015 10:30a Family Medicine Ra, K29.[address] Radha, without bleeding [employer] H61.21 Impacted cerumen, right ear Office Visit 10/08/2015 1:00p [facility] Mary Del Rosario J06.[address] M.DYordan respiratory infection, unspecified R06.2 Wheezing Z23 Encounter for immunization Office Visit 05/27/2015 11:30a Family Medicine Zofia, 493.10 Asthma Intrinsic West LUIS Chaparro M.D. 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
[2019-04-30 17:33] VITALS: BP 128/73
--- NOTE | 2019-04-30 18:14 | ED ---
Lower Extremity - HPI Summary HPI Summary: 18 yr old male with the complaint of left medial knee pain. The patient states that he slipped on water when working last night and he twisted his left knee. He has pain over the medial left knee. It is 6/10, and worse with weight bearing. He has had meniscus surgery on the right knee in the past. - History of Current Complaint Chief Complaint: UCLowerExtremity Stated Complaint: TWISTED LEFT KNEE Time Seen by Provider: 04/30/19 17:35 Pain Intensity: 7 - Allergies/Home Medications Allergies/Adverse Reactions: Allergies Allergy/AdvReac Type Severity Reaction Status Date / Time No Known Allergies Allergy Verified 04/30/19 17:26 Home Medications: Home Medications Acetaminophen TAB* [Tylenol TAB*] 650 mg PO Q4H PRN 04/30/19 [History Confirmed 04/30/19] Ibuprofen TAB* [Advil TAB*] 800 mg PO Q6H PRN 04/30/19 [History Confirmed ] PMH/Surg Hx/FS Hx/Imm Hx Endocrine/Hematology History: Denies: Hx Diabetes Cardiovascular History: Denies: Hx Hypertension, Hx Pacemaker/ICD, Other Cardiovascular Problems/ Disorders Respiratory History: Reports: Hx Asthma Denies: Other Respiratory Problems/Disorders GI History: Denies: Other GI Disorders History: Reports: Other Problems/Disorders - CRYSTALS IN URINE AUG, 2015/ NONE SINCE Denies: Hx Renal Disease Musculoskeletal History: Reports: Hx Arthritis - ? RIGHT KNEE/PER DAD Sensory History: Reports: Hx Contacts or Glasses - GLASSES Denies: Hx Hearing Aid Opthamlomology History: Reports: Hx Contacts or Glasses - GLASSES Psychiatric History: Reports: Hx Depression - NO MEDS, Hx of Violent Episodes Against Others Denies: Hx Eating Disorder, Hx Panic Disorder - Surgical History Surgery Procedure, Year, and Place: Appendectomy, 2007, [facility], TUBES IN EARS. RIGHT KNEE MEDIAL MENISCUS REPAIR. T&A- 05/2016. Right shoulder rotator cuff repair, 2016 Hx Anesthesia Reactions: No Infectious Disease History: No Infectious Disease History: Denies: Traveled Outside the [place] in Last 30 Days - Family History Known Family History: Positive: None, Cardiac Disease, Hypertension Family History: Tonsillits per pt. - Social History Occupation: Employed Full-time Alcohol Use: None Hx Substance Use: No Substance Use Type: Reports: None Hx Tobacco Use: No Smoking Status (MU): Never Smoked Tobacco Review of Systems Constitutional: Negative Positive: Other - left medial knee pain All Other Systems Reviewed And Are Negative: Yes Physical Exam Triage Information Reviewed: Yes Vital Signs On Initial Exam: Initial Vitals Temp Pulse Resp BP Pulse Ox 99.6 F 80 18 128/73 100 04/30/19 17:28 04/30/19 17:28 04/30/19 17:28 04/30/19 17:28 04/30/19 17:28 Vital Signs Reviewed: Yes Appearance: Positive: Well-Appearing, No Pain Distress Skin: Positive: Warm, Skin Color Reflects Adequate Perfusion Head/Face: Positive: Normal Head/Face Inspection Eyes: Positive: EOMI, CARINA Neck: Positive: Nontender Respiratory/Lung Sounds: Positive: Clear to Auscultation, Breath Sounds Present Cardiovascular: Positive: Pulses are Symmetrical in both Upper and Lower Extremities Abdomen Description: Negative: Distended Musculoskeletal: Positive: Other - left knee tender over the medial collateral ligament, and no deformity. no effusion. Neurological: Positive: Sensory/Motor Intact, Alert, Oriented to Person Place, Time, CN Intact II-III Psychiatric: Positive: Normal - [place] Coma Scale Best Eye Response: 4 - Spontaneous Best Motor Response: 6 - Obeys Commands Best Verbal Response: 5 - Oriented Coma Scale Total: 15 Diagnostics - Vital Signs Vital Signs Temp Pulse Resp BP Pulse Ox 04/30/19 17:28 99.6 F 80 18 128/73 100 - Laboratory Lab Statement: Any lab studies that have been ordered have been reviewed, and results considered in the medical decision making process. - Radiology left knee Radiology Interpretation Completed By: ED Physician - nad Lower Extremity Course/Dx - Course Course Of Treatment: left knee sprain of medial collateral lig, referral to ortho. - Diagnoses Provider Diagnoses: MCL sprain of left knee Discharge - Sign-Out/Discharge Documenting (check all that apply): Patient Departure All imaging exams completed and their final reports reviewed: No - Discharge Plan Condition: Good Disposition: HOME Patient Education Materials: Knee Sprain (ED) Referrals: Stacy Layne MD [Primary Care Provider] - 2 Days Dwight Carlos MD [Medical Doctor] - 2 Days - Billing Disposition and Condition Condition: GOOD Disposition: Home
--- NOTE | 2019-05-01 10:27 | UC ---
- Progress Note Progress Note: wet read correct Course/Dx - Diagnoses Provider Diagnoses: MCL sprain of left knee Discharge - Sign-Out/Discharge Documenting (check all that apply): Post-Discharge Follow Up All imaging exams completed and their final reports reviewed: Yes - Discharge Plan Condition: Good Disposition: HOME Patient Education Materials: Knee Sprain (ED) Forms: *Work Release Referrals: Dwight Carlos MD [Medical Doctor] - 1 Day Stacy Layne MD [Primary Care Provider] - 2 Days - Billing Disposition and Condition Condition: GOOD Disposition: Home
== END 2019-04-30 18:57 | disposition home or self-care (01) ==
LOC: UCCORT 17:14
DX: S83.412A Sprain of medial collateral ligament of left knee, initial encounter (principal); W01.0XXA Fall on same level from slipping, tripping and stumbling without subsequent striking against object, initial encounter; Y93.89 Activity, other specified; Y92.9 Unspecified place or not applicable
CPT/HCPCS: 99213; G0463